=== PATIENT | female | born 1975 | race Caucasian/White ===

== ENCOUNTER → 2017-04-05 | Outpatient (CLI) | payer OTHER ==
[~2017-04-05] MED LIST: BCPILLS PO
== END | disposition home or self-care (01) ==
LOC: C.PAPS 09:57
PROVIDERS: ATTEND Obstetrics & Gynecology
DX: Z12.4 Encounter for screening for malignant neoplasm of cervix (principal)

== ENCOUNTER 2021-04-23 19:24 | Inpatient (IN) ==
[2021-04-23] MEDS ORDERED: OPTIRAY 320 125ml IV ONE (19:48)
[2021-04-23 19:49] LABS: Basophils # (auto) 0.04 K/uL (0-0.2); Basophils % (auto) 0.3 %; Eosinophils # (auto) 0.04 K/uL (0-0.5); Eosinophils % (auto) 0.3 %; Hematocrit (blood only) 43.7 % (37-47); Hemoglobin 14.6 g/dL (12.0-16.0); Immature Granulocytes # (auto) 0.02 K/uL (0.00-0.02); Immature Granulocytes % (auto) 0.2 %; Lymphocytes # (auto) 1.34 K/uL (1.2-3.4); Lymphocytes % (auto) 11.3 %; Mean Corpuscular Hemoglobin 30.4 pg (25-34); Mean Corpuscular Hgb Conc 33.4 g/dL (32-36); Mean Corpuscular Volume 90.9 fL (80-100); Mean Platelet Volume 8.7 fL (7.4-10.4); Monocytes # (auto) 0.74 K/uL (0.11-0.59); Monocytes % (auto) 6.3 %; Neutrophils # (auto) 9.66 K/uL (1.4-6.5); Neutrophils % (auto) 81.6 %; Nucleated RBC # (auto) 0.04 K/uL (0-0); Nucleated RBC % (auto) 0.3 %; Platelet Count 406 K/uL (130-400); RDW Coefficient of Variation 13.3 % (11.5-14.5); Red Blood Count 4.81 M/uL (4.2-5.4); White Blood Count 11.84 K/uL (4.8-10.8)
--- NOTE | 2021-04-23 19:53 | CT Scan Report ---
CT OF THE HEAD WITHOUT CONTRAST CLINICAL HISTORY: Stroke like symptoms. COMPARISON STUDY: Head CT April 26, 2015. TECHNIQUE: Helical axial images of the head were obtained without IV contrast. Automated exposure con trol was utilized for the study. A dose lowering technique was utilized adhering to the principles o f ALARA. FINDINGS: No acute intracranial hemorrhage, midline shift or mass effect is present. Note is made of encephalomalacia within portions of the left MCA territory. There is associated mild dilatation of th e left lateral ventricle. These findings are chronic. There are no findings to suggest acute dural si nus thrombosis or acute territorial infarct. No significant calvarial abnormalities are present. Visu alized portions of the sinuses and mastoid air cells are clear. IMPRESSION: 1. No acute intracranial findings. 2. 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 ACT 112: Negative or not required by law. Electronically signed by: Juan Antonio Nichols M.D. 04/23/2021 7:52 PM
[2021-04-23 19:54] LABS: iSTAT Creatinine 1.2 mg/dl (0.6-1.3); iSTAT Hemoglobin 14.6 g/dl (12.0-16.0); iSTAT Ionized Calcium 1.13 mmol/l (1.12-1.32); iSTAT Potassium 3.2 mmol/L (3.3-5.0)
--- NOTE | 2021-04-23 20:00 | CT Scan Report ---
HEAD & NECK CTA HISTORY: Slurred speech. Right facial droop. Right-sided weakness. Stroke Like Symptoms TECHNIQUE: Multiaxial CT images of the head were performed following the intravenous administration o f contrast to evaluate the major cerebral vessels. Multiaxial CT images of the neck were also perform ed following the intravenous administration of contrast to evaluate the major cervical vessels. Maxim um intensity projection images were also obtained. A dose lowering technique was utilized adhering to the principles of ALARA. COMPARISON: Head CT 04/26/2015. FINDINGS: The major dural venous sinuses are patent. Visualized intracranial internal carotid arteries, distal vertebral arteries, and basilar artery are widely patent. 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 Slightly attenuated left MCA branch es in comparison to the right. This is likely due to the chronic encephalomalacia seen within the lef t MCA territory consistent with an old infarct. The aortic arch and proximal great vessels are widely patent. There is no significant stenosis, occ lusion, or dissection identified within the bilateral common carotid, internal carotid, or vertebral arteries. Mild partially calcified plaque within the left carotid bulb. IMPRESSION: 1. Attenuated left MCA branches likely corresponding to the old left MCA territory infarct. The remai kellie cerebral arteries show no significant stenosis, occlusion, or aneurysm. 2. No significant stenosis, occlusion, or dissection identified within the carotid or vertebral arter ies. ACT 112: Negative or not required by law. Electronically signed by: Christopher La M.D. 04/23/2021 7:59 PM
--- NOTE | 2021-04-23 20:01 | XRay Report ---
XR chest 1V portable HISTORY: Slurred speech. Right-sided weakness. Stroke Like Symptoms COMPARISON: Chest 04/26/2015. FINDINGS: The lungs are clear. The heart remains top normal in size. No pleural effusions. No pneumot horax. IMPRESSION: No acute process. ACT 112: Negative or not required by law. Electronically signed by: Christopher La M.D. 04/23/2021 8:00 PM
[2021-04-23 20:03] LABS: INR 1.1 (0.9-1.1); Partial Thromboplastin Ratio 0.9; Partial Thromboplastin Time 23.9 Seconds (21.0-31.0); Prothrombin Time 10.8 Seconds (9.0-12.0)
--- NOTE | 2021-04-23 20:10 | Emergency Department Note ---
Impression & Plan Ischemic cerebrovascular accident (CVA) ED Provider Note NAME: HORACE TRIPP AGE: 45 SEX: F : 1975 ARRIVES VIA: Walk-In INFORMANT: Patient, patient significant other ED PROVIDER(S): Magnus Davis DO CHIEF COMPLAINT: Strokelike symptoms HPI: The patient is a 45-year-old female who presented to the emergency department through triage for an evaluation of strokelike symptoms. The patient has a history of a stroke in the past. She had a stroke in 2016 which felt to be secondary to a PFO. The patient presented to the emergency department at that time outside of the TPA window. The patient states that she went to lay down at approximately 4:30 p.m. this afternoon. She was tired but states that she did not have any headache or weakness. When she awoke she called for her significant other because she did not feel right. She states that she thought she may be having a stroke. Her significant other presented to the emergency department with her and states that approximately 7:05 PM his significant other found him and stated that she did not feel right. She was noted to have slurred speech. She tried to ambulate but appeared to be having weakness and was falling. Her significant other states that her symptoms are very similar to when she had a previous stroke. She only takes aspirin. She is not on any oral anticoagulation. The patient's last known well time according to her was this morning when she appeared to be at her normal baseline. The patient herself states that she felt fine before she went to take the nap. She had no recent trauma or fevers. She states otherwise she has been compliant with her usual outpatient medications. ROS: See above HPI for pertinent positives & negatives. A total of 10 systems reviewed and were otherwise negative. PAST MEDICAL HISTORY: See Below PAST SURGICAL HISTORY: See Below FAMILY HISTORY: See Below SOCIAL HISTORY: See Below HOME MEDICATIONS: See Below ALLERGIES: See Below VITALS: See Below PHYSICAL EXAMINATION: GENERAL: The patient is awake and alert. She appears somewhat anxious appearing. EYES: The conjunctivae are clear. The pupils are round and reactive. EARS, NOSE, MOUTH AND THROAT: The nose is without any evidence of any deformity. NECK: The neck is nontender and supple. RESPIRATORY: Normal respiratory effort is noted there is no evidence of wheezing rhonchi or rales CARDIOVASCULAR: Tachycardic rate with regular rhythm was noted. There is no definite murmur. GASTROINTESTINAL: The abdomen is soft. Abdomen is nontender. MUSCULOSKELETAL/EXTREMITIES: There is no evidence of gross deformity full range of motion is noted in the hips and shoulders. SKIN: There is no obvious evidence of any rash. There are no petechiae, pallor or cyanosis noted. NEUROLOGIC: Patient is awake alert and oriented x3. Check Weigher strength was symmetric. There was no drift noted in the upper extremities. Patient is able to hold each leg off the bed for greater than 5 seconds. There is a slight dysarthria noted with pressured speech. There is a facial droop noted on the right involving the corner of the mouth. MEDICAL DECISION MAKING: The patient is a 45-year-old female who has a history of ischemic stroke who presented to the emergency department for strokelike symptoms. The patient had a last known well observed by her significant other this morning however she states that she felt in her normal state of health when she went to lay down for a nap around 4:30 PM. When she awoke she felt as though something was off. She contacted her significant other in approximately 7 was noted to have slurred speech and difficulty ambulating. The patient was made a stroke alert after coming through triage. Her initial CT showed no acute disease. She was considered to be a candidate for thrombolytics although she was outside of the 3-hour window. I discussed her case with the telestroke neurologist. She agreed that the patient might be a candidate for thrombolytics and could benefit if they were delivered still inside of the for 1/2-hour window. We discussed the risk and benefits with the patient as well as her significant other. They were agreeable to thrombolytic administration. Thrombolytics were ordered by myself. I reevaluated the patient multiple times. I did also discussed her case with the on-call [facility] hospitalist. They have agreed to evaluate the patient in the emergency department for further management and disposition. Triage Nursing notes reviewed. Prior medical records reviewed Vital Signs: reviewed and remarkable for no significant abnormalities Differential diagnosis: Infection, dehydration, metabolic abnormality, hypo/hyperglycemia, electrolyte disturbance, anemia, hypoxia, cardiac sources, intracerebral event, toxicologic, neurologic, as well as other pathologies. ER treatment provided: See below Diagnostics interpreted by me: ECG: EKG was obtained in the emergency department. My interpretation is sinus tachycardia 111 bpm. There is no ectopy. Poor R wave progression was noted. Low voltage was noted throughout. This was compared to a tracing from March. No changes were noted. Cardiac Monitoring: An order was placed for continuous cardiac monitoring. The monitor shows a rate of 85 bpm with sinus rhythm. Laboratory studies: As stated above and show below. Imaging studies: See below Consultation(s): I discussed this case with Dr. Lagos who is on-call for [facility] telestroke. I discussed this case with Dr. Whitehead who is on-call for the [facility] hospitalist group. ED COURSE: Procedures: none Critical Care: I have personally spent greater than 45 minutes of critical care time in the direct management of this patient. This includes bedside care, interpretation of diagnostic studies, and testing, discussion with consultants, patient, and family members, and other required patient management activities. This 45 minutes is in excess of all separately billable procedures. 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 Required: No Beliefs That Will Affect Care: None Current Living Situation: Spouse Feels Safe at Home: Yes Safety Concerns: Feels Safe At This Time Assistive Devices: None Allergies Allergies Allergy/AdvReac Type Severity Reaction Status Date / Time ethinyl estradiol Allergy Unknown neuro Verified 04/23/21 19:48 [From Ortho Tri-Cyclen (28)] complications norgestimate Allergy Unknown neuro Verified 04/23/21 19:48 [From Ortho Tri-Cyclen (28)] complications Penicillins Allergy Unknown unkn Verified 04/23/21 19:48 bee venom protein (honey bee) AdvReac Unknown SWELLING Verified 12/21/20 09:04 Home Meds Home Medications Medication Instructions Recorded Confirmed cholecalciferol (vitamin D3) 50 2,000 units PO DAILY 10/17/18 04/23/21 mcg (2,000 unit) capsule losartan 25 mg tablet 25 mg PO DAILY 10/17/18 04/23/21 aspirin 81 mg tablet,delayed 81 mg PO DAILY 04/23/21 04/23/21 release (Aspirin Low Dose) atorvastatin 20 mg tablet 20 mg PO DAILY 04/23/21 04/23/21 bupropion HCl 300 mg 24 hr tablet, 300 mg PO DAILY 04/23/21 04/23/21 extended release fluoxetine 40 mg capsule 40 mg PO DAILY 04/23/21 04/23/21 gabapentin 400 mg capsule 400 mg PO TID 04/23/21 04/23/21 Results & Data (ED) Vital Signs Vital Signs - 24 hr 04/23/21 19:25 04/23/21 19:47 04/23/21 20:13 Temperature 36.8 C Temperature Source Temporal Artery Scan Pulse Rate 118 H Pulse Rate [Apical] 128 H 120 H Pulse Rhythm [Apical] Pulse Strength [Apical] Respiratory Rate 18 20 20 Respiratory Effort / Characteristics Non-Labored Spontaneous Non-Labored Spontaneous Respiratory Depth Normal Normal Respiratory Pattern Regular Regular Blood Pressure 130/81 Blood Pressure [Right Arm] 145/81 H 138/84 Blood Pressure Mean 97 Blood Pressure Mean [Right Arm] 102 102 Blood Pressure Position Sitting Blood Pressure Position [Right Arm] Semi-fowlers Pulse Oximetry 99 100 99 Oxygen Delivery Method Room Air Room Air Room Air Sepsis Recent Fever Within 48 Hours No Sepsis New/Unexplained Change in Mental Status No Sepsis Action Taken by Nursing No Action Required 04/23/21 20:36 04/23/21 20:51 04/23/21 21:06 Temperature 36.9 C 36.8 C Temperature Source Oral Oral Pulse Rate Pulse Rate [Apical] 111 H 105 H 101 H Pulse Rhythm [Apical] Regular Pulse Strength [Apical] Normal Respiratory Rate 20 22 20 Respiratory Effort / Characteristics Non-Labored Spontaneous Non-Labored Spontaneous Respiratory Depth Normal Normal Respiratory Pattern Regular Regular Blood Pressure Blood Pressure [Right Arm] 145/96 H 134/97 150/96 H Blood Pressure Mean Blood Pressure Mean [Right Arm] 112 109 114 Blood Pressure Position Blood Pressure Position [Right Arm] Semi-fowlers Semi-fowlers Pulse Oximetry 99 98 96 Oxygen Delivery Method Room Air Room Air Room Air Sepsis Recent Fever Within 48 Hours Sepsis New/Unexplained Change in Mental Status Sepsis Action Taken by Nursing 04/23/21 21:21 04/23/21 21:36 04/23/21 21:51 Temperature 36.7 C 36.8 C Temperature Source Oral Oral Pulse Rate Pulse Rate [Apical] 94 H 94 H 93 H Pulse Rhythm [Apical] Pulse Strength [Apical] Respiratory Rate 21 20 22 Respiratory Effort / Characteristics Non-Labored Spontaneous Non-Labored Spontaneous Non-Labored Spontaneous Respiratory Depth Normal Normal Normal Respiratory Pattern Regular Regular Regular Blood Pressure Blood Pressure [Right Arm] 135/89 138/92 128/87 Blood Pressure Mean Blood Pressure Mean [Right Arm] 104 107 100 Blood Pressure Position Blood Pressure Position [Right Arm] Semi-fowlers Semi-fowlers Semi-fowlers Pulse Oximetry 97 97 97 Oxygen Delivery Method Room Air Room Air Room Air Sepsis Recent Fever Within 48 Hours Sepsis New/Unexplained Change in Mental Status Sepsis Action Taken by Retirement Medications Current Medication List: was personally reviewed by me Laboratory Data Attestation: I reviewed the patient's lab results. Result diagrams: 04/24/21 05:11 04/24/21 05:11 Lab Results 04/23/21 04/23/21 04/23/21 Range/Units 19:34 19:37 19:37 WBC 11.84 H (4.8-10.8) K/uL RBC 4.81 (4.2-5.4) M/uL Hgb 14.6 (12.0-16.0) g/dL POC Hgb (12.0-16.0) g/dl Hct 43.7 (37-47) % POC Hct (37-47) % MCV 90.9 (80-100) fL MCH 30.4 (25-34) pg MCHC 33.4 (32-36) g/dL RDW Std Deviation 44.0 (36.4-46.3) fL RDW Coeff of Joslyn 13.3 (11.5-14.5) % Plt Count 406 H (130-400) K/uL MPV 8.7 (7.4-10.4) fL Immature Gran % (Auto) 0.2 % Neut % (Auto) 81.6 % Lymph % (Auto) 11.3 % [place] % (Auto) 6.3 % Eos % (Auto) 0.3 % Baso % (Auto) 0.3 % Neut # (Auto) 9.66 H (1.4-6.5) K/uL Lymph # (Auto) 1.34 (1.2-3.4) K/uL [place] # (Auto) 0.74 H (0.11-0.59) K/uL Eos # (Auto) 0.04 (0-0.5) K/uL Baso # (Auto) 0.04 (0-0.2) K/uL Immature Gran # (Auto) 0.02 (0.00-0.02) K/uL Absolute Nucleated RBC 0.04 H (0-0) K/uL Nucleated RBC % (auto) 0.3 % PT 10.8 (9.0-12.0) Seconds INR 1.1 (0.9-1.1) APTT 23.9 (21.0-31.0) Seconds PTT Ratio 0.9 POC Sodium (135-144) mmol/L Sodium (136-145) mmol/L POC Potassium (3.3-5.0) mmol/L Potassium (3.5-5.1) mmol/L POC Chloride (101-112) mmol/L Chloride (98-107) mmol/L Carbon Dioxide (21-32) mmol/L POC Total CO2 (24-31) mmol/L Anion Gap (3-11) POC Anion Gap (16-25) mmol/L POC BUN (7-18) mg/dl BUN (6-23) mg/dl Creatinine (0.6-1.2) mg/dl POC Creatinine (0.6-1.3) mg/dl Est Cr Clr Drug Dosing ml/min Est GFR ( Amer) ml/min Est GFR (Non-Af Amer) ml/min BUN/Creatinine Ratio (10-20) Glucose (70-99(Fasting)) mg/dl POC Glucose 122 H (70-99) mg/dl POC Glucose (other) (70-99) mg/dl Calcium (8.5-10.1) mg/dl POC Ioniz Calcium Uri (1.12-1.32) mmol/l Magnesium (1.7-2.4) mg/dl Total Bilirubin (0.2-1.0) mg/dl AST (13-39) U/L ALT (7-52) U/L Alkaline Phosphatase (34-104) U/L Troponin I (0-0.04) ng/ml Total Protein (6.0-8.3) gm/dl Albumin (3.4-5.0) gm/dl Globulin (2.5-4.0) gm/dl Albumin/Globulin Ratio (0.9-2) TSH (0.300-4.500) uIu/ml HCG, Quant mIU/ml SARS-CoV-2, RNA, NAAT (NEGATIVE) 04/23/21 04/23/21 04/23/21 Range/Units 19:37 19:37 19:37 WBC (4.8-10.8) K/uL RBC (4.2-5.4) M/uL Hgb (12.0-16.0) g/dL POC Hgb (12.0-16.0) g/dl Hct (37-47) % POC Hct (37-47) % MCV (80-100) fL MCH (25-34) pg MCHC (32-36) g/dL RDW Std Deviation (36.4-46.3) fL RDW Coeff of Joslyn (11.5-14.5) % Plt Count (130-400) K/uL MPV (7.4-10.4) fL Immature Gran % (Auto) % Neut % (Auto) % Lymph % (Auto) % [place] % (Auto) % Eos % (Auto) % Baso % (Auto) % Neut # (Auto) (1.4-6.5) K/uL Lymph # (Auto) (1.2-3.4) K/uL [place] # (Auto) (0.11-0.59) K/uL Eos # (Auto) (0-0.5) K/uL Baso # (Auto) (0-0.2) K/uL Immature Gran # (Auto) (0.00-0.02) K/uL Absolute Nucleated RBC (0-0) K/uL Nucleated RBC % (auto) % PT (9.0-12.0) Seconds INR (0.9-1.1) APTT (21.0-31.0) Seconds PTT Ratio POC Sodium (135-144) mmol/L Sodium 138 (136-145) mmol/L POC Potassium (3.3-5.0) mmol/L Potassium 3.2 L (3.5-5.1) mmol/L POC Chloride (101-112) mmol/L Chloride 102 (98-107) mmol/L Carbon Dioxide 22 (21-32) mmol/L POC Total CO2 (24-31) mmol/L Anion Gap 14 H (3-11) POC Anion Gap (16-25) mmol/L POC BUN (7-18) mg/dl BUN 9 (6-23) mg/dl Creatinine 1.27 H (0.6-1.2) mg/dl POC Creatinine (0.6-1.3) mg/dl Est Cr Clr Drug Dosing 55.7 ml/min Est GFR ( Amer) 59.0 ml/min Est GFR (Non-Af Amer) 50.9 ml/min BUN/Creatinine Ratio 7.1 L (10-20) Glucose 119 H (70-99(Fasting)) mg/dl POC Glucose (70-99) mg/dl POC Glucose (other) (70-99) mg/dl Calcium 8.8 (8.5-10.1) mg/dl POC Ioniz Calcium Uri (1.12-1.32) mmol/l Magnesium 2.0 (1.7-2.4) mg/dl Total Bilirubin 0.5 (0.2-1.0) mg/dl AST 30 (13-39) U/L ALT 18 (7-52) U/L Alkaline Phosphatase 134 H (34-104) U/L Troponin I < 0.03 (0-0.04) ng/ml Total Protein 7.5 (6.0-8.3) gm/dl Albumin 4.4 (3.4-5.0) gm/dl Globulin 3.1 (2.5-4.0) gm/dl Albumin/Globulin Ratio 1.4 (0.9-2) TSH 4.440 (0.300-4.500) uIu/ml HCG, Quant 2 mIU/ml SARS-CoV-2, RNA, NAAT (NEGATIVE) 04/23/21 04/23/21 Range/Units 19:42 20:35 WBC (4.8-10.8) K/uL RBC (4.2-5.4) M/uL Hgb (12.0-16.0) g/dL POC Hgb 14.6 (12.0-16.0) g/dl Hct (37-47) % POC Hct 43 (37-47) % MCV (80-100) fL MCH (25-34) pg MCHC (32-36) g/dL RDW Std Deviation (36.4-46.3) fL RDW Coeff of Joslyn (11.5-14.5) % Plt Count (130-400) K/uL MPV (7.4-10.4) fL Immature Gran % (Auto) % Neut % (Auto) % Lymph % (Auto) % [place] % (Auto) % Eos % (Auto) % Baso % (Auto) % Neut # (Auto) (1.4-6.5) K/uL Lymph # (Auto) (1.2-3.4) K/uL [place] # (Auto) (0.11-0.59) K/uL Eos # (Auto) (0-0.5) K/uL Baso # (Auto) (0-0.2) K/uL Immature Gran # (Auto) (0.00-0.02) K/uL Absolute Nucleated RBC (0-0) K/uL Nucleated RBC % (auto) % PT (9.0-12.0) Seconds INR (0.9-1.1) APTT (21.0-31.0) Seconds PTT Ratio POC Sodium 141 (135-144) mmol/L Sodium (136-145) mmol/L POC Potassium 3.2 L (3.3-5.0) mmol/L Potassium (3.5-5.1) mmol/L POC Chloride 102 (101-112) mmol/L Chloride (98-107) mmol/L Carbon Dioxide (21-32) mmol/L POC Total CO2 24 (24-31) mmol/L Anion Gap (3-11) POC Anion Gap 18.0 (16-25) mmol/L POC BUN 9 (7-18) mg/dl BUN (6-23) mg/dl Creatinine (0.6-1.2) mg/dl POC Creatinine 1.2 (0.6-1.3) mg/dl Est Cr Clr Drug Dosing ml/min Est GFR ( Amer) ml/min Est GFR (Non-Af Amer) ml/min BUN/Creatinine Ratio (10-20) Glucose (70-99(Fasting)) mg/dl POC Glucose (70-99) mg/dl POC Glucose (other) 125 H (70-99) mg/dl Calcium (8.5-10.1) mg/dl POC Ioniz Calcium Uri 1.13 (1.12-1.32) mmol/l Magnesium (1.7-2.4) mg/dl Total Bilirubin (0.2-1.0) mg/dl AST (13-39) U/L ALT (7-52) U/L Alkaline Phosphatase (34-104) U/L Troponin I (0-0.04) ng/ml Total Protein (6.0-8.3) gm/dl Albumin (3.4-5.0) gm/dl Globulin (2.5-4.0) gm/dl Albumin/Globulin Ratio (0.9-2) TSH (0.300-4.500) uIu/ml HCG, Quant mIU/ml SARS-CoV-2, RNA, NAAT NEGATIVE (NEGATIVE) Administered Medications Atorvastatin Calcium (Atorvastatin 20 Mg Tab) 20 mg PO DAILY [facility] Stop: 05/24/21 08:59 Last Admin: 04/24/21 08:30 Dose: 20 mg Documented by: [id number] Bupropion HCl (Bupropion Xl 300 Mg Tabcr) 300 mg PO DAILY [facility] Stop: 05/24/21 08:59 Last Admin: 04/24/21 08:30 Dose: 300 mg Documented by: [id number] Fluoxetine HCl (Fluoxetine Hcl 20 Mg Cap) 40 mg PO DAILY [facility] Stop: 05/24/21 08:59 Last Admin: 04/24/21 08:30 Dose: 40 mg Documented by: [id number] Gabapentin (Gabapentin 400 Mg Cap) 400 mg PO TID [facility] Stop: 05/24/21 08:59 Last Admin: 04/24/21 20:25 Dose: 400 mg Documented by: [id number] Admin: 04/24/21 14:38 Dose: 400 mg Documented by: [id number] Admin: 04/24/21 08:29 Dose: 400 mg Documented by: [id number] Cefepime HCl 2,000 mg/ Syringe 20 mls @ 5 mls/min IV Q8H [facility]; Protocol Stop: 05/04/21 19:59 Last Admin: 04/24/21 20:25 Dose: 5 mls/min Documented by: [id number] Discontinued Medications Tenecteplase 23 mg/ Syringe 4.6 mls @ 55.2 mls/min IV NOW ONE; Protocol Stop: 04/23/21 20:34 Last Admin: 04/23/21 20:36 Dose: 55.2 mls/min Documented by: [id number] Cosigned by: [id number] Sodium Chloride (Nss 1000ml) 500 mls @ 999 mls/hr IV .Q31M ONE Stop: 04/23/21 21:28 Last Infusion: 04/23/21 21:33 Dose: 0 mls/hr Documented by: [id number] Admin: 04/23/21 21:02 Dose: 999 mls/hr Documented by: [id number] Potassium Chloride (K Bunny / Wtr) 10 meq in 100 mls @ 100 mls/hr IV Q1H [facility]; Protocol Stop: 04/24/21 01:44 Last Infusion: 04/24/21 02:30 Dose: 0 mls/hr Documented by: [id number] Admin: 04/24/21 01:28 Dose: 100 mls/hr Documented by: [id number] Infusion: 04/24/21 01:20 Dose: 100 mls/hr Documented by: [id number] Admin: 04/24/21 00:20 Dose: 100 mls/hr Documented by: [id number] Infusion: 04/24/21 00:17 Dose: 100 mls/hr Documented by: [id number] Admin: 04/23/21 23:17 Dose: 100 mls/hr Documented by: [id number] Infusion: 04/23/21 22:51 Dose: 100 mls/hr Documented by: [id number] Admin: 04/23/21 21:51 Dose: 100 mls/hr Documented by: [id number] Lactated Ringer's (Lr) 1,000 mls @ 80 mls/hr IV .[id number] [facility] Stop: 05/23/21 23:08 Last Infusion: 04/24/21 20:46 Dose: 0 mls/hr Documented by: [id number] Admin: 04/24/21 12:18 Dose: 80 mls/hr Documented by: [id number] Infusion: 04/24/21 12:18 Dose: 80 mls/hr Documented by: [id number] Admin: 04/24/21 00:21 Dose: 80 mls/hr Documented by: [id number] Ioversol (Optiray 320 125ml) 120 ml IV ONCE ONE Stop: 04/23/21 19:49 Last Admin: 04/23/21 19:48 Dose: 120 ml Documented by: [id number] Miscellaneous (Stat Iv) 1 ea N/A NOW STA Stop: 04/23/21 20:23 Last Admin: 04/23/21 20:35 Dose: 1 ea Documented by: [id number] Potassium Chloride (Potassium Chloride Crtab 20 Meq Tabcr) 20 meq PO NOW STA Stop: 04/24/21 06:45 Last Admin: 04/24/21 08:29 Dose: 20 meq Documented by: [id number] Sodium Chloride (Sodium Chloride 0.9% 10ml Flush) 20 ml IV NOW STA Stop: 04/23/21 20:23 Last Admin: 04/23/21 20:38 Dose: 20 ml Documented by: [id number] Imaging Data Radiologist's Impression: Chest X-Ray 04/23/21 19:33 XR chest 1V portable HISTORY: Slurred speech. Right-sided weakness. Stroke Like Symptoms COMPARISON: Chest 04/26/2015. FINDINGS: The lungs are clear. The heart remains top normal in size. No pleural effusions. No pneumothorax. IMPRESSION: No acute process. ACT 112: Negative or not required by law. Electronically signed by: Christopher La M.D. 04/23/2021 8:[address] 04/23/21 19:33 CT OF THE HEAD WITHOUT CONTRAST CLINICAL HISTORY: Stroke like symptoms. COMPARISON STUDY: Head CT April 26, 2015. TECHNIQUE: Helical axial images of the head were obtained without IV contrast. Automated exposure control was utilized for the study. A dose lowering technique was utilized adhering to the principles of ALARA. FINDINGS: No acute intracranial hemorrhage, midline shift or mass effect is present. Note is made of encephalomalacia within portions of the left MCA territory. There is associated mild dilatation of the left lateral ventricle. These findings are chronic. There are no findings to suggest acute dural sinus thrombosis or acute territorial infarct. No significant calvarial abnormalities are present. Visualized portions of the sinuses and mastoid air cells are clear. IMPRESSION: 1. No acute intracranial findings. 2. 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 ACT 112: Negative or not required by law. Electronically signed by: Juan Antonio Nichols M.D. 04/23/2021 7:52 PM Head CTA 04/23/21 19:33 HEAD & NECK CTA HISTORY: Slurred speech. Right facial droop. Right-sided weakness. Stroke Like Symptoms TECHNIQUE: Multiaxial CT images of the head were performed following the intr avenous administration of contrast to evaluate the major cerebral vessels. Multiaxial CT images of the neck were also performed following the intravenous administration of contrast to evaluate the major cervical vessels. Maximum intensity projection images were also obtained. A dose lowering technique was utilized adhering to the principles of ALARA. COMPARISON: Head CT 04/26/2015. FINDINGS: The major dural venous sinuses are patent. Visualized intracranial internal carotid arteries, distal vertebral arteries, and basilar artery are widely patent. There is no significant stenosis, occlusion, or aneurysm seen within the bilateral ACAs, right MCA, or four h club agent. Slightly attenuated left MCA branches in comparison to the right. This is likely due to the chronic encephalomalacia seen within the left MCA territory consistent with an old infarct. The aortic arch and proximal great vessels are widely patent. There is no significant stenosis, occlusion, or dissection identified within the bilateral common carotid, internal carotid, or vertebral arteries. Mild partially calcified plaque within the left carotid bulb. IMPRESSION: 1. Attenuated left MCA branches likely corresponding to the old left MCA territory infarct. The remaining cerebral arteries show no significant stenosis, occlusion, or aneurysm. 2. No significant stenosis, occlusion, or dissection identified within the carotid or vertebral arteries. ACT 112: Negative or not required by law. Electronically signed by: Christopher La M.D. 04/23/2021 7:59 PM Neck CTA 04/23/21 19:33 HEAD & NECK CTA HISTORY: Slurred speech. Right facial droop. Right-sided weakness. Stroke Like Symptoms TECHNIQUE: Multiaxial CT images of the head were performed following the intravenous administration of contrast to evaluate the major cerebral vessels. Multiaxial CT images of the neck were also performed following the intravenous administration of contrast to evaluate the major cervical vessels. Maximum intensity projection images were also obtained. A dose lowering technique was utilized adhering to the principles of ALARA. COMPARISON: Head CT 04/26/2015. FINDINGS: The major dural venous sinuses are patent. Visualized intracranial internal carotid arteries, distal vertebral arteries, and basilar artery are widely patent. There is no significant stenosis, occlusion, or aneurysm seen within the bilateral ACAs, right MCA, or four h club agent. Slightly attenuated left MCA branches in comparison to the right. This is likely due to the chronic encephalomalacia seen within the left MCA territory consistent with an old infarct. The aortic arch and proximal great vessels are widely patent. There is no significant stenosis, occlusion, or dissection identified within the bilateral common carotid, internal carotid, or vertebral arteries. Mild partially calcified plaque within the left carotid bulb. IMPRESSION: 1. Attenuated left MCA branches likely corresponding to the old left MCA territory infarct. The remaining cerebral arteries show no significant stenosis, occlusion, or aneurysm. 2. No significant stenosis, occlusion, or dissection identified within the carotid or vertebral arteries. ACT 112: Negative or not required by law. Electronically signed by: Christopher La M.D. 04/23/2021 7:59 PM Discharge Plan Visit Data Chief Complaint: Stroke/CVA Symptoms Stated Complaint: SLURRED SPEECH AND UNSTEADY WALKING ED Provider: Magnus Davis Discharge Problem: Ischemic cerebrovascular accident (CVA) Patient Disposition: Admitted As Inpatient Discharge Instructions Interventions: ED Discharge Assessment Last Done: 04/23/21 22:10
[2021-04-23 20:18] LABS: Troponin I < 0.03 ng/ml (0-0.04)
[2021-04-23 20:19] LABS: Alanine Aminotransferase 18 U/L (7-52); Albumin Globulin Ratio 1.4 (0.9-2); Albumin Level 4.4 gm/dl (3.4-5.0); Alkaline Phosphatase 134 U/L (34-104); Anion Gap 14 (3-11); Aspartate Aminotransferase 30 U/L (13-39); BUN Creatinine Ratio 7.1 (10-20); Bilirubin,Total 0.5 mg/dl (0.2-1.0); Blood Urea Nitrogen 9 mg/dl (6-23); Calcium 8.8 mg/dl (8.5-10.1); Carbon Dioxide 22 mmol/L (21-32); Chloride 102 mmol/L (98-107); Creatinine Clr Calc Pharmacy 55.7 ml/min; Est GFR (Non-African American) 50.9 ml/min; Globulin 3.1 gm/dl (2.5-4.0); Glucose 119 mg/dl (70-99(Fasting)); Potassium 3.2 mmol/L (3.5-5.1); Sodium 138 mmol/L (136-145); Total Protein 7.5 gm/dl (6.0-8.3)
[2021-04-23] MEDS ORDERED: STAT IV STA (20:22)
[2021-04-23] MEDS ORDERED: SODIUM CHLORIDE 0.9% 10ML FLUSH IV STA (20:22)
[2021-04-23] MEDS ORDERED: No Aspirin within 24hrs of THROMBOLYTIC-Stroke PO SCH (20:30)
[2021-04-23] MEDS ORDERED: TENECTEPLASE 23 MG in SYRINGE 0 ML IV ONE (20:33)
[2021-04-23] MEDS ORDERED: SODIUM CHLORIDE 0.9% 1000ML 500 ML IV ONE (20:58)
--- NOTE | 2021-04-23 21:46 | History & Physical Report ---
Date of Service April 23, 2021 Assessment & Plan (1) Recurrent cerebrovascular accidents (CVAs): Plan: hx left frontoparietal ischemic CVA 2016 History PFO as per records hypertension, slight elevated secondary to above hyperlipidemia, on statin Rx anxiety/mood disorder, suboptimal as per patient Hyperglycemia rule out DM Hypokalemia past tobacco abuse. ICU monitoring post TPA Neurochecks MRI brain, TTE for additional stroke work-up Neurology consult Re: Recurrent CVA Permissive hypertension for now Replace potassium Check hemoglobin A1c DVT prophylaxis. Lovenox subcutaneous 24 hours post TPA if no bleed on follow- up CT head Full code Patient requesting updates from providers. Mr. Magan Zambrano, contact #[phone]. Text document was generated using [employer] voice recognition software. It may contain grammatical or spelling errors. Kindly contact undersigned for clarification of any documentation item in question. History of Present Illness Chief Complaint: Slurred speech Primary Care Provider: Dr. Irving History obtained from patient, family, and records. Medical history significant for ischemic CVA, hypertension, hyperlipidemia, anxiety/mood disorder, past tobacco abuse. Patient confined at [facility] last March 2015 for left frontoparietal ischemic CVA presenting as slurred speech with right-sided weakness/numbness thought to be cardioembolic due to small PFO. No TPA during confinement. Patient discharged was on dual antiplatelet Rx (ASA, Plavix). Plavix discontinued after 1 year. Patient was also on citicoline as of last outpatient [facility] neurologist visit last April 2016. Patient took a nap around 4 PM today. When she woke up around 6 PM, patient noted to have slurred speech as per . No headache, no chest pain, no S OB, no arm or leg weakness. Patient compliant with home medications. Depression not the best as per patient although she denies suicidality. Stroke alert called upon arrival at the ER. IV tPA administered as per [facility] stroke specialist recommendations. Some improvement in slurred speech noted by post TPA administration. 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 Allergies Allergy/AdvReac Type Severity Reaction Status Date / Time ethinyl estradiol Allergy Unknown neuro Verified 04/23/21 19:48 [From Ortho Tri-Cyclen (28)] complications norgestimate Allergy Unknown neuro Verified 04/23/21 19:48 [From Ortho Tri-Cyclen (28)] complications Penicillins Allergy Unknown unkn Verified 04/23/21 19:48 bee venom protein (honey bee) AdvReac Unknown SWELLING Verified 12/21/20 09:04 Home Medications Medication Instructions Recorded Confirmed Type cholecalciferol (vitamin D3) 50 2,000 units PO DAILY 10/17/18 04/23/21 History mcg (2,000 unit) capsule losartan 25 mg tablet 25 mg PO DAILY 10/17/18 04/23/21 History aspirin 81 mg tablet,delayed 81 mg PO DAILY 04/23/21 04/23/21 History release (Aspirin Low Dose) atorvastatin 20 mg tablet 20 mg PO DAILY 04/23/21 04/23/21 History bupropion HCl 300 mg 24 hr tablet, 300 mg PO DAILY 04/23/21 04/23/21 History extended release fluoxetine 40 mg capsule 40 mg PO DAILY 04/23/21 04/23/21 History gabapentin 400 mg capsule 400 mg PO TID 04/23/21 04/23/21 History Past Med/Surg History Medical History Ischemic cerebrovascular accident (CVA) Vaginal Pap smear with ASC-US Varicella Surgical History H/O hernia repair Status post pyloromyotomy, follow-up exam Family History Aunt Breast cancer Father Diabetes Hypertension Mother Heart disease Grandmother (Maternal) Osteoporosis Social History Smoking Status: Never smoker Tobacco Type: Cigarettes Hx Alcohol Use: No Hx Substance Use: No Preferred Language: Setswana Communication Ability: Effective Jailer/Training Officer Required: No Beliefs That Will Affect Care: None Current Living Situation: Spouse Feels Safe at Home: Yes Safety Concerns: Feels Safe At This Time Assistive Devices: None Review of Systems Review of Systems: As per HPI, all 10 systems reviewed, all other ROS negative Physical Exam Physical Exam: GENERAL: Comfortable, slightly anxious, morbidly obese, mildly dysarthric, no respiratory distress SKIN: Normal color, warm HEENT: [place] palpebral conjunctivae, no ptosis, dry buccal mucosa NECK : Supple, short neck, no tenderness CHEST : CTA, no tenderness HEART : RRR, no obvious murmurs ABDOMEN: Some distention, nontender EXTREMITIES : Minimal LE swelling, no LE tenderness, no other conspicuous deformities noted NEUROLOGIC : Coherent, no facial asymmetry, mild dysarthria, gait and stance not assessed Results & Data Results & Data ([facility]) Vital Signs (Past 12 Hours) Vital Signs Temp Pulse Pulse Resp BP BP Pulse Ox 04/23/21 21:36 36.8 C 94 H 20 138/92 97 04/23/21 21:21 36.7 C 94 H 21 135/89 97 04/23/21 21:06 36.8 C 101 H 20 150/96 H 96 04/23/21 20:51 36.9 C 105 H 22 134/97 98 04/23/21 20:36 111 H 20 145/96 H 99 04/23/21 20:13 120 H 20 138/84 99 04/23/21 19:47 128 H 20 145/81 H 100 04/23/21 19:25 36.8 C 118 H 18 130/81 99 Laboratory Results Laboratory Results WBC 11.84 K/uL (4.8-10.8) H 04/23/21 19:37 RBC 4.81 M/uL (4.2-5.4) 04/23/21 19:37 Hgb 14.6 g/dL (12.0-16.0) 04/23/21 19:37 POC Hgb 14.6 g/dl (12.0-16.0) 04/23/21 19:42 Hct 43.7 % (37-47) 04/23/21 19:37 POC Hct 43 % (37-47) 04/23/21 19:42 MCV 90.9 fL (80-100) 04/23/21 19:37 MCH 30.4 pg (25-34) 04/23/21 19:37 MCHC 33.4 g/dL (32-36) 04/23/21 19:37 RDW Std Deviation 44.0 fL (36.4-46.3) 04/23/21 19:37 RDW Coeff of Joslyn 13.3 % (11.5-14.5) 04/23/21 19:37 Plt Count 406 K/uL (130-400) H 04/23/21 19:37 MPV 8.7 fL (7.4-10.4) 04/23/21 19:37 Immature Gran % (Auto) 0.2 % 04/23/21 19:37 Neut % (Auto) 81.6 % 04/23/21 19:37 Lymph % (Auto) 11.3 % 04/23/21 19:37 Pine % (Auto) 6.3 % 04/23/21 19:37 Eos % (Auto) 0.3 % 04/23/21 19:37 Baso % (Auto) 0.3 % 04/23/21 19:37 Neut # (Auto) 9.66 K/uL (1.4-6.5) H 04/23/21 19:37 Lymph # (Auto) 1.34 K/uL (1.2-3.4) 04/23/21 19:37 Pine # (Auto) 0.74 K/uL (0.11-0.59) H 04/23/21 19:37 Eos # (Auto) 0.04 K/uL (0-0.5) 04/23/21 19:37 Baso # (Auto) 0.04 K/uL (0-0.2) 04/23/21 19:37 Immature Gran # (Auto) 0.02 K/uL (0.00-0.02) 04/23/21 19:37 Absolute Nucleated RBC 0.04 K/uL (0-0) H 04/23/21 19:37 Nucleated RBC % (auto) 0.3 % 04/23/21 19:37 PT 10.8 Seconds (9.0-12.0) 04/23/21 19:37 INR 1.1 (0.9-1.1) 04/23/21 19:37 APTT 23.9 Seconds (21.0-31.0) 04/23/21 19:37 PTT Ratio 0.9 04/23/21 19:37 POC Sodium 141 mmol/L (135-144) 04/23/21 19:42 Sodium 138 mmol/L (136-145) 04/23/21 19:37 POC Potassium 3.2 mmol/L (3.3-5.0) L 04/23/21 19:42 Potassium 3.2 mmol/L (3.5-5.1) L 04/23/21 19:37 POC Chloride 102 mmol/L (101-112) 04/23/21 19:42 Chloride 102 mmol/L (98-107) 04/23/21 19:37 Carbon Dioxide 22 mmol/L (21-32) 04/23/21 19:37 POC Total CO2 24 mmol/L (24-31) 04/23/21 19:42 Anion Gap 14 (3-11) H 04/23/21 19:37 POC Anion Gap 18.0 mmol/L (16-25) 04/23/21 19:42 POC BUN 9 mg/dl (7-18) 04/23/21 19:42 BUN 9 mg/dl (6-23) 04/23/21 19:37 Creatinine 1.27 mg/dl (0.6-1.2) H 04/23/21 19:37 POC Creatinine 1.2 mg/dl (0.6-1.3) 04/23/21 19:42 Est Cr Clr Drug Dosing 55.7 ml/min 04/23/21 19:37 Est GFR ( Amer) 59.0 ml/min 04/23/21 19:37 Est GFR (Non-Af Amer) 50.9 ml/min 04/23/21 19:37 BUN/Creatinine Ratio 7.1 (10-20) L 04/23/21 19:37 Glucose 119 mg/dl (70-99(Fasting)) H 04/23/21 19:37 POC Glucose 122 mg/dl (70-99) H 04/23/21 19:34 POC Glucose (other) 125 mg/dl (70-99) H 04/23/21 19:42 Calcium 8.8 mg/dl (8.5-10.1) 04/23/21 19:37 POC Ioniz Calcium Uri 1.13 mmol/l (1.12-1.32) 04/23/21 19:42 Magnesium 2.0 mg/dl (1.7-2.4) 04/23/21 19:37 Total Bilirubin 0.5 mg/dl (0.2-1.0) 04/23/21 19:37 AST 30 U/L (13-39) 04/23/21 19:37 ALT 18 U/L (7-52) 04/23/21 19:37 Alkaline Phosphatase 134 U/L (34-104) H 04/23/21 19:37 Troponin I < 0.03 ng/ml (0-0.04) 04/23/21 19:37 Total Protein 7.5 gm/dl (6.0-8.3) 04/23/21 19:37 Albumin 4.4 gm/dl (3.4-5.0) 04/23/21 19:37 Globulin 3.1 gm/dl (2.5-4.0) 04/23/21 19:37 Albumin/Globulin Ratio 1.4 (0.9-2) 04/23/21 19:37 HCG, Quant 2 mIU/ml 04/23/21 19:37 SARS-CoV-2, RNA, NAAT NEGATIVE (NEGATIVE) 04/23/21 20:35 Impressions Chest X-Ray 04/23/21 19:33 XR chest 1V portable HISTORY: Slurred speech. Right-sided weakness. Stroke Like Symptoms COMPARISON: Chest 04/26/2015. FINDINGS: The lungs are clear. The heart remains top normal in size. No pleural effusions. No pneumothorax. IMPRESSION: No acute process. ACT 112: Negative or not required by law. Electronically signed by: Christopher La M.D. 04/23/2021 8:[address] 04/23/21 19:33 CT OF THE HEAD WITHOUT CONTRAST CLINICAL HISTORY: Stroke like symptoms. COMPARISON STUDY: Head CT April 26, 2015. TECHNIQUE: Helical axial images of the head were obtained without IV contrast. Automated exposure control was utilized for the study. A dose lowering technique was utilized adhering to the principles of ALARA. FINDINGS: No acute intracranial hemorrhage, midline shift or mass effect is present. Note is made of encephalomalacia within portions of the left MCA territory. There is associated mild dilatation of the left lateral ventricle. These findings are chronic. There are no findings to suggest acute dural sinus thrombosis or acute territorial infarct. No significant calvarial abnormalities are present. Visualized portions of the sinuses and mastoid air cells are clear. IMPRESSION: 1. No acute intracranial findings. 2. 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 ACT 112: Negative or not required by law. Electronically signed by: Juan Antonio Nichols M.D. 04/23/2021 7:52 PM Head CTA 04/23/21 19:33 HEAD & NECK CTA HISTORY: Slurred speech. Right facial droop. Right-sided weakness. Stroke Like Symptoms TECHNIQUE: Multiaxial CT images of the head were performed following the intravenous administration of contrast to evaluate the major cerebral vessels. Multiaxial CT images of the neck were also performed following the intravenous a dministration of contrast to evaluate the major cervical vessels. Maximum intensity projection images were also obtained. A dose lowering technique was utilized adhering to the principles of ALARA. COMPARISON: Head CT 04/26/2015. FINDINGS: The major dural venous sinuses are patent. Visualized intracranial internal carotid arteries, distal vertebral arteries, and basilar artery are widely p atent. There is no significant stenosis, occlusion, or aneurysm seen within the bilateral ACAs, right MCA, or stocking inspector. Slightly attenuated left MCA branches in comparison to the right. This is likely due to the chronic encephalomalacia seen within the left MCA territory consistent with an old infarct. The aortic arch and proximal great vessels are widely patent. There is no significant stenosis, occlusion, or dissection identified within the bilateral common carotid, internal carotid, or vertebral arteries. Mild partially calcified plaque within the left carotid bulb. IMPRESSION: 1. Attenuated left MCA branches likely corresponding to the old left MCA territory infarct. The remaining cerebral arteries show no significant stenosis, occlusion, or aneurysm. 2. No significant stenosis, occlusion, or dissection identified within the carotid or vertebral arteries. ACT 112: Negative or not required by law. Electronically signed by: Christopher La M.D. 04/23/2021 7:59 PM Neck CTA 04/23/21 19:33 HEAD & NECK CTA HISTORY: Slurred speech. Right facial droop. Right-sided weakness. Stroke Like Symptoms TECHNIQUE: Multiaxial CT images of the head were performed following the intravenous administration of contrast to evaluate the major cerebral vessels. Multiaxial CT images of the neck were also performed following the intravenous administration of contrast to evaluate the major cervical vessels. Maximum intensity projection images were also obtained. A dose lowering technique was utilized adhering to the principles of ALARA. COMPARISON: Head CT 04/26/2015. FINDINGS: The major dural venous sinuses are patent. Visualized intracranial internal carotid arteries, distal vertebral arteries, and basilar artery are widely patent. There is no significant stenosis, occlusion, or aneurysm seen within the bilateral ACAs, right MCA, or stocking inspector. Slightly attenuated left MCA branches in comparison to the right. This is likely due to the chronic encephalomalacia seen within the left MCA territory consistent with an old infarct. The aortic arch and proximal great vessels are widely patent. There is no significant stenosis, occlusion, or dissection identified within the bilateral common carotid, internal carotid, or vertebral arteries. Mild partially calcified plaque within the left carotid bulb. IMPRESSION: 1. Attenuated left MCA branches likely corresponding to the old left MCA territory infarct. The remaining cerebral arteries show no significant stenosis, occlusion, or aneurysm. 2. No significant stenosis, occlusion, or dissection identified within the carotid or vertebral arteries. ACT 112: Negative or not required by law. Electronically signed by: Christopher La M.D. 04/23/2021 7:59 PM Diagnostic Findings EKG as per my interpretation:Rate 110, sinus tachycardia, normal axis, diffuse T wave abnormalities, low voltage
[2021-04-23] MEDS: POTASSIUM CHLORIDE / WTR 10 MEQ/100 ML PLCT IV SCH ×2 (21:51→23:17)
[2021-04-23] MEDS ORDERED: PHARMACIST DISCHARGE MED REC CONSULT PRN (23:09)
[2021-04-23] MEDS ORDERED: PROMETHAZINE HCL 12.5 MG in SODIUM CHLORIDE 0.9% 50 ML IV PRN (23:09)
[2021-04-23] MEDS ORDERED: ICU PROTOCOL FOR HYPERGLYCEMIA PRN (23:09)
[2021-04-23] MEDS ORDERED: ACETAMINOPHEN 325 MG TAB PO PRN (23:09)
--- NOTE | 2021-04-23 23:37 | Critical Care Consultation ---
Date of Consultation April 23, 2021 Assessment & Plan (1) Acute CVA (cerebrovascular accident): Impression: 45-year-old female presents to the ICU following TPA administration for presumed cerebrovascular accident for 24-hour post TPA monitoring protocol. Neuro - CVApatient with initial symptoms of weakness/dizziness, and slurred speech as described in HPI. Received TPA at 2022 per [facility] neurology recommendations. Patient now without neurological deficits. -Patient does have history of left MCA territory infarct from 2016 which was visualized on CT imaging. No residual deficits from the stroke. -CT head, CTA head and neck without acute intracranial processes -MRI pending -Echo pending -Neurology consulted, follow-up for aspirin Plavix recommendations -Follow-up A1c and lipid panel -24-hour post TPA protocol in ICU, follow-up 24-hour CT head Anxiety disordercontinue Wellbutrin, Prozac Cardiac - No significant cardiac history. Patient normal sinus rhythm and hemodynamically stable on monitor. History of previous PFO Continuous monitor on telemetry Respiratory - No history of pulmonary disease. Currently maintaining oxygen saturation on room air without labored breathing. Continuous monitoring pulse ox GI - N.p.o. pending swallow. RENAL/LYTES - VIOLET?Creatinine 1.27, unsure of baseline -Continue with IV fluid resuscitation -Maintain maps greater than 65 and renally adjust medication -Monitored for development of contrast nephropathy following CTA -Monitor routine BMPs and replete electrolytes as indicated - Strict I's and O's ENDO - No history of diabetes or thyroid disease ICU hyperglycemic protocol HEME - H&H stable, monitor for bleeding and routine CBCs ID - Medication for infectious process at this time LINES/IV ACCESS - Peripheral IVs DVT PROPHYLAXIS - SCDs, hold on anticoagulation for 24 hours given TPA Thank you for allowing us to participate in the care of this patient. Please refer to my attending physician's documentation for any further recommendations. (2) Anxiety disorder: (3) H/O inguinal hernia repair: (4) Weakness: (5) Slurred speech: History of Present Illness Attending Physician: Amol Saunders MD History of Present Illness Patient is a 45-year-old female with past medical history left MCA infarct in 2016 (no residual) thought to be caused by PFO, and anxiety disorder who presented to the emergency department after experiencing dizziness and slurred speech which started around 7:05 PM. On arrival to the emergency department, CT head was negative for acute intracranial process along with CTA neck and head. Patient was evaluated by [place] neurology and she was determined to be candidate for TPA. Patient received TPA at 2022. Patient now transferred to ICU for 24-hour monitoring post TPA administration. On arrival to the ICU the patient is alert and oriented x3. She is hemodynamically stable and appears comfortable. She denies any pain, headache, dizziness, syncope, recent illness, fevers, congestion, cough, shortness of breath, chest pain or palpitations, abdominal pain, nausea vomiting or diarrhea. Patient states that her initial symptoms have resolved. She denies any changes in vision, weakness, numbness, or tingling or other neurological symptoms. Allergies Allergy/AdvReac Type Severity Reaction Status Date / Time ethinyl estradiol Allergy Unknown neuro Verified 04/23/21 19:48 [From Ortho Tri-Cyclen (28)] complications norgestimate Allergy Unknown neuro Verified 04/23/21 19:48 [From Ortho Tri-Cyclen (28)] complications Penicillins Allergy Unknown unkn Verified 04/23/21 19:48 bee venom protein (honey bee) AdvReac Unknown SWELLING Verified 12/21/20 09:04 Home Medications Medication Instructions Recorded Confirmed Type cholecalciferol (vitamin D3) 50 2,000 units PO DAILY 10/17/18 04/23/21 History mcg (2,000 unit) capsule losartan 25 mg tablet 25 mg PO DAILY 10/17/18 04/23/21 History aspirin 81 mg tablet,delayed 81 mg PO DAILY 04/23/21 04/23/21 History release (Aspirin Low Dose) atorvastatin 20 mg tablet 20 mg PO DAILY 04/23/21 04/23/21 History bupropion HCl 300 mg 24 hr tablet, 300 mg PO DAILY 04/23/21 04/23/21 History extended release fluoxetine 40 mg capsule 40 mg PO DAILY 04/23/21 04/23/21 History gabapentin 400 mg capsule 400 mg PO TID 04/23/21 04/23/21 History Patient History Medical History Ischemic cerebrovascular accident (CVA) Vaginal Pap smear with ASC-US Varicella Surgical History H/O hernia repair Status post pyloromyotomy, follow-up exam Family History Aunt Breast cancer Father Diabetes Hypertension Mother Heart disease Grandmother (Maternal) Osteoporosis Social History Smoking Status: Never smoker Tobacco Type: Cigarettes Hx Alcohol Use: No Hx Substance Use: No Preferred Language: Anguillan Communication Ability: Effective Global Category Manager Required: No Beliefs That Will Affect Care: None Current Living Situation: Spouse Feels Safe at Home: Yes Safety Concerns: Feels Safe At This Time Assistive Devices: None Review of Systems Review of Systems: All systems reviewed & are unremarkable except as noted in HPI & below Physical Exam Constitutional: cooperative and comfortable Eyes: PERRL, conjunctivae normal, anicteric sclerae ENMT: external ear and nose normal, oropharynx normal Neck: trachea midline, no thyromegaly Respiratory: normal respiratory effort, lungs clear to auscultation Cardiovascular: RRR, no murmur, no edema Heart Sounds: normal S1 and normal S2 Extremities: no edema Gastrointestinal (Abdomen): normal bowel sounds, soft, nontender, no hepatosplenomegaly Musculoskeletal: no cyanosis or clubbing, extremities motor strength 5/5 Skin: no rashes, warm and dry Neurologic: PERRL, EOMI, accommodation nl, no face palsy, no dysarthria Psychiatric: A+Ox3, euthymic affect Results & Data Results & Data ([facility]) Vital Signs (Past 12 Hours) Vital Signs Temp Pulse Pulse Resp BP BP BP 04/23/21 23:08 37.5 C 88 22 148/84 H 04/23/21 23:07 37.5 C 88 22 130/81 04/23/21 22:38 36.8 C 89 22 134/92 04/23/21 22:23 36.8 C 87 21 134/94 04/23/21 22:06 90 20 134/83 04/23/21 21:51 93 H 22 128/87 04/23/21 21:36 36.8 C 94 H 20 138/92 04/23/21 21:21 36.7 C 94 H 21 135/89 04/23/21 21:06 36.8 C 101 H 20 150/96 H 04/23/21 20:51 36.9 C 105 H 22 134/97 04/23/21 20:36 111 H 20 145/96 H 04/23/21 20:13 120 H 20 138/84 04/23/21 19:47 128 H 20 145/81 H 04/23/21 19:25 36.8 C 118 H 18 130/81 Pulse Ox 04/23/21 23:08 97 04/23/21 23:07 97 04/23/21 22:38 99 04/23/21 22:23 97 04/23/21 22:06 98 04/23/21 21:51 97 04/23/21 21:36 97 04/23/21 21:21 97 04/23/21 21:06 96 04/23/21 20:51 98 04/23/21 20:36 99 04/23/21 20:13 99 04/23/21 19:47 100 04/23/21 19:25 99 Coding Level of Care Code 40543 Inpt Consult Level 3 Diagnoses Acute CVA (cerebrovascular accident) I63.9 Anxiety disorder F41.9 H/O inguinal hernia repair Z98.890; Z87.19 Weakness R53.1 Slurred speech R47.81
[2021-04-24] MEDS: POTASSIUM CHLORIDE / WTR 10 MEQ/100 ML PLCT IV SCH ×2 (00:20→01:28)
[2021-04-24] MEDS: LACTATED RINGER'S 1,000 ML IV SCH ×2 (00:21→12:18)
[2021-04-24 02:11] LABS: Appearance Urine Clear (Clear); Bacteria Urine Automated 2+ (Negative); Bilirubin Urine Negative (Negative); Blood Urine 3+ (Negative); Color Urine Yellow; Epithelial Cell Urine Auto 20-30 /lpf (0-5); Glucose Urine UA Negative (Negative); Ketones Urine Negative (Negative); Leukocyte Esterase Urine Negative (Negative); Nitrite Urine Positive (Negative); Protein Urine 1+ (Negative); RBC Urine Automated >30 /hpf (0-4); Urobilinogen Urine Negative (Negative)
[2021-04-24 02:12] LABS: Specific Gravity Urine >= 1.045 (1.000-1.030)
[2021-04-24 05:27] LABS: Basophils # (auto) 0.05 K/uL (0-0.2); Basophils % (auto) 0.8 %; Eosinophils # (auto) 0.08 K/uL (0-0.5); Eosinophils % (auto) 1.3 %; Hematocrit (blood only) 37.4 % (37-47); Hemoglobin 12.2 g/dL (12.0-16.0); Immature Granulocytes # (auto) 0.01 K/uL (0.00-0.02); Immature Granulocytes % (auto) 0.2 %; Lymphocytes # (auto) 1.85 K/uL (1.2-3.4); Lymphocytes % (auto) 29.9 %; Mean Corpuscular Hemoglobin 29.7 pg (25-34); Mean Corpuscular Hgb Conc 32.6 g/dL (32-36); Mean Platelet Volume 8.5 fL (7.4-10.4); Monocytes # (auto) 0.54 K/uL (0.11-0.59); Monocytes % (auto) 8.7 %; Neutrophils # (auto) 3.66 K/uL (1.4-6.5); Neutrophils % (auto) 59.1 %; Platelet Count 327 K/uL (130-400); RDW Coefficient of Variation 13.4 % (11.5-14.5); RDW Standard Deviation 44.4 fL (36.4-46.3); Red Blood Count 4.11 M/uL (4.2-5.4); White Blood Count 6.19 K/uL (4.8-10.8)
[2021-04-24 06:25] LABS: BUN Creatinine Ratio 7.2 (10-20); Calcium 8.2 mg/dl (8.5-10.1); Creatinine Clr Calc Pharmacy 63.7 ml/min; Est GFR (African American) 69.5 ml/min; Est GFR (Non-African American) 59.9 ml/min; Phosphorus 2.8 mg/dl (2.5-4.9); Potassium 3.5 mmol/L (3.5-5.1)
[2021-04-24] MEDS ORDERED: POTASSIUM CHLORIDE CRTAB 20 MEQ TABCR PO STA (06:44)
[2021-04-24] MEDS: GABAPENTIN 400 MG CAP PO SCH ×3 (08:29→20:25)
[2021-04-24] MEDS: buPROPion XL 300 MG TABCR PO SCH (08:30)
[2021-04-24] MEDS: FLUoxetine HCL 20 MG CAP PO SCH (08:30)
[2021-04-24] MEDS: ATORVASTATIN 20 MG TAB PO SCH (08:30)
--- NOTE | 2021-04-24 08:57 | Critical Care Progress Note ---
Date of Service April 24, 2021 Assessment & Plan (1) Acute CVA (cerebrovascular accident): Plan: Impression: 45-year-old female presents to the ICU following TPA administration for presumed cerebrovascular accident for 24-hour post TPA monitoring protocol. Neuro - CVApatient with initial symptoms of weakness/dizziness, and slurred speech as described in HPI. Received TPA at 2022 per [facility] [place] recommendations. Patient now without neurological deficits. -Patient does have history of left MCA territory infarct from 2016 which was visualized on CT imaging. No residual deficits from the stroke. -CT head, CTA head and neck without acute intracranial processes -MRI pending -Echo pending -Neurology consulted, follow-up for aspirin Plavix recommendations -Follow-up A1c and lipid panel -24-hour post TPA protocol in ICU, follow-up 24-hour CT head Anxiety disordercontinue Wellbutrin, Prozac Cardiac - No significant cardiac history. Patient normal sinus rhythm and hemodynamically stable on monitor. History of previous PFO Continuous monitor on telemetry Respiratory - No history of pulmonary disease. Currently maintaining oxygen saturation on room air without labored breathing. Continuous monitoring pulse ox RENAL/LYTES - VIOLET?Creatinine 1.27, unsure of baseline -Improved creatinine 1.1 - Strict I's and O's ENDO - No history of diabetes or thyroid disease ICU hyperglycemic protocol HEME - H&H stable, monitor for bleeding and routine CBCs ID - Medication for infectious process at this time LINES/IV ACCESS - Peripheral IVs DVT PROPHYLAXIS - SCDs, hold on anticoagulation for 24 hours given TPA Anticipate able to downgrade status post 24 hours administration from TPA (2) Anxiety disorder: (3) H/O inguinal hernia repair: (4) Weakness: (5) Slurred speech: Admission and Anticipated Discharge Date Admission Date: April 23, 2021 Subjective No longer feels dizzy, speech back to normal feels acute issues have resolved Review of Systems Review of Systems: No chest pain or shortness of breath Physical Exam Physical Exam: General: Alert. nontoxic. Skin: Warm, dry, Head: Atraumatic Ears, nose, mouth and throat: airway patent Cardiovascular: Normal peripheral perfusion Respiratory: no respiratory distress Gastrointestinal: Non distended Musculoskeletal: No deformity Results & Data Results & Data ([facility]) Vital Signs (Past 12 Hours) Vital Signs Temp Pulse Pulse Resp BP BP BP 04/24/21 08:38 36.7 C 83 20 125/80 04/24/21 08:12 76 04/24/21 08:00 81 16 04/24/21 07:38 36.8 C 77 20 137/76 04/24/21 07:30 77 19 137/76 04/24/21 07:00 76 20 129/85 04/24/21 06:38 36.9 C 78 21 111/90 04/24/21 05:38 36.8 C 79 18 127/79 04/24/21 04:38 36.9 C 77 20 129/80 04/24/21 04:08 36.8 C 77 17 120/80 04/24/21 03:38 36.9 C 78 19 127/78 04/24/21 03:08 36.9 C 79 19 125/78 04/24/21 02:38 36.8 C 82 20 122/81 04/24/21 02:08 37.1 C 85 18 116/81 04/24/21 01:38 37.2 C 85 21 133/89 04/24/21 01:08 37.5 C 82 23 131/86 04/24/21 00:38 36.8 C 86 24 124/82 04/24/21 00:08 37.5 C 85 23 140/89 04/23/21 23:38 37.4 C 89 20 125/86 04/23/21 23:09 88 04/23/21 23:08 37.5 C 88 22 148/84 H 04/23/21 23:07 37.5 C 88 22 130/81 04/23/21 22:38 36.8 C 89 22 134/92 04/23/21 22:23 36.8 C 87 21 134/94 04/23/21 22:06 90 20 134/83 04/23/21 21:51 93 H 22 128/87 04/23/21 21:36 36.8 C 94 H 20 138/92 04/23/21 21:21 36.7 C 94 H 21 135/89 04/23/21 21:06 36.8 C 101 H 20 150/96 H Pulse Ox 04/24/21 08:38 93 04/24/21 08:12 04/24/21 08:00 96 04/24/21 07:38 97 04/24/21 07:30 96 04/24/21 07:00 95 02/27/22 06:38 93 04/24/21 05:38 93 04/24/21 04:38 93 04/24/21 04:08 94 04/24/21 03:38 93 04/24/21 03:08 93 04/24/21 02:38 93 04/24/21 02:08 94 04/24/21 01:38 93 04/24/21 01:08 95 04/24/21 00:38 94 04/24/21 00:08 95 04/23/21 23:38 96 04/23/21 23:09 04/23/21 23:08 97 04/23/21 23:07 97 04/23/21 22:38 99 04/23/21 22:23 97 04/23/21 22:06 98 04/23/21 21:51 97 04/23/21 21:36 97 04/23/21 21:21 97 04/23/21 21:06 96 Critical Care Results & Data Vital Signs (Past 12 Hours) Vital Signs Temp Pulse Pulse Resp BP BP BP 04/24/21 08:38 36.7 C 83 20 125/80 04/24/21 08:12 76 04/24/21 08:00 81 16 04/24/21 07:38 36.8 C 77 20 137/76 04/24/21 07:30 77 19 137/76 04/24/21 07:00 76 20 129/85 04/24/21 06:38 36.9 C 78 21 111/90 04/24/21 05:38 36.8 C 79 18 127/79 04/24/21 04:38 36.9 C 77 20 129/80 04/24/21 04:08 36.8 C 77 17 120/80 04/24/21 03:38 36.9 C 78 19 127/78 04/24/21 03:08 36.9 C 79 19 125/78 04/24/21 02:38 36.8 C 82 20 122/81 04/24/21 02:08 37.1 C 85 18 116/81 04/24/21 01:38 37.2 C 85 21 133/89 04/24/21 01:08 37.5 C 82 23 131/86 04/24/21 00:38 36.8 C 86 24 124/82 04/24/21 00:08 37.5 C 85 23 140/89 04/23/21 23:38 37.4 C 89 20 125/86 04/23/21 23:09 88 04/23/21 23:08 37.5 C 88 22 148/84 H 04/23/21 23:07 37.5 C 88 22 130/81 04/23/21 22:38 36.8 C 89 22 134/92 04/23/21 22:23 36.8 C 87 21 134/94 04/23/21 22:06 90 20 134/83 04/23/21 21:51 93 H 22 128/87 04/23/21 21:36 36.8 C 94 H 20 138/92 04/23/21 21:21 36.7 C 94 H 21 135/89 04/23/21 21:06 36.8 C 101 H 20 150/96 H Pulse Ox 04/24/21 08:38 93 04/24/21 08:12 04/24/21 08:00 96 04/24/21 07:38 97 04/24/21 07:30 96 04/24/21 07:00 95 04/24/21 06:38 93 04/24/21 05:38 93 04/24/21 04:38 93 04/24/21 04:08 94 04/24/21 03:38 93 04/24/21 03:08 93 04/24/21 02:38 93 04/24/21 02:08 94 04/24/21 01:38 93 04/24/21 01:08 95 04/24/21 00:38 94 04/24/21 00:08 95 04/23/21 23:38 96 04/23/21 23:09 04/23/21 23:08 97 04/23/21 23:07 97 04/23/21 22:38 99 04/23/21 22:23 97 04/23/21 22:06 98 04/23/21 21:51 97 04/23/21 21:36 97 04/23/21 21:21 97 04/23/21 21:06 96 Lab & Micro Results (Past 24 Hours) RBC 4.11 M/uL (4.2-5.4) L 04/24/21 WBC 6.19 K/uL (4.8-10.8) 04/24/21 Hgb 12.2 g/dL (12.0-16.0) 04/24/21 Hct 37.4 % (37-47) 04/24/21 MCV 91.0 fL (80-100) 04/24/21 MCH 29.7 pg (25-34) 04/24/21 MCHC 32.6 g/dL (32-36) 04/24/21 RDW Standard Deviation 44.4 fL (36.4-46.3) 04/24/21 RDW Coefficient of Variation 13.4 % (11.5-14.5) 04/24/21 Plt Count 327 K/uL (130-400) 04/24/21 MPV 8.5 fL (7.4-10.4) 04/24/21 Nucleated Red Blood Cells % (auto) 0.3 % 04/23/21 Nucleated RBC Absolute Count (auto) 0.04 K/uL (0-0) H 04/23/21 Neutrophils (%) (Auto) 59.1 % 04/24/21 Lymphocytes (%) (Auto) 29.9 % 04/24/21 Monocytes # (Auto) 0.54 K/uL (0.11-0.59) 04/24/21 Eosinophils # (Auto) 0.08 K/uL (0-0.5) 04/24/21 Immature Granulocyte % (Auto) 0.2 % 04/24/21 Neutrophils # (Auto) 3.66 K/uL (1.4-6.5) 04/24/21 Lymphocytes # (Auto) 1.85 K/uL (1.2-3.4) 04/24/21 Monocytes # (Auto) 0.54 K/uL (0.11-0.59) 04/24/21 Eosinophils # (Auto) 0.08 K/uL (0-0.5) 04/24/21 Basophils # (Auto) 0.05 K/uL (0-0.2) 04/24/21 Immature Granulocyte # (Auto) 0.01 K/uL (0.00-0.02) 04/24/21 Na 138 mmol/L (136-145) 04/24/21 K 3.5 mmol/L (3.5-5.1) 04/24/21 Cl 108 mmol/L (98-107) H 04/24/21 CO2 24 mmol/L (21-32) 04/24/21 Anion Gap 6 (3-11) 04/24/21 BUN 8 mg/dl (6-23) 04/24/21 Creatinine 1.11 mg/dl (0.6-1.2) 04/24/21 Estimated GFR ( Amer) 69.5 ml/min 04/24/21 Estimated GFR (Non-Af Amer) 59.9 ml/min 04/24/21 BUN/Creatinine Ratio 7.2 (10-20) L 04/24/21 Glu 75 mg/dl (70-99(Fasting)) 04/24/21 Ca 8.2 mg/dl (8.5-10.1) L 04/24/21 Phosphorus Level 2.8 mg/dl (2.5-4.9) 04/24/21 Total Bilirubin 0.5 mg/dl (0.2-1.0) 04/23/21 AST 30 U/L (13-39) 04/23/21 ALT 18 U/L (7-52) 04/23/21 Alkaline Phosphatase 134 U/L (34-104) H 04/23/21 TP 7.5 gm/dl (6.0-8.3) 04/23/21 Albumin 4.4 gm/dl (3.4-5.0) 04/23/21 Globulin 3.1 gm/dl (2.5-4.0) 04/23/21 Albumin/Globulin Ratio 1.4 (0.9-2) 04/23/21 Mg 2.0 mg/dl (1.7-2.4) 04/24/21 05:11 04/24/21 Calcium Level 8.2 mg/dl (8.5-10.1) L 04/24/21 05:11 04/24/21 Prothromb Time International Ratio 1.1 (0.9-1.1) 04/23/21 19:37 04/23/21 Diagnostic Findings (Past 24 Hours) Chest X-Ray 04/23/21 19:33 XR chest 1V portable HISTORY: Slurred speech. Right-sided weakness. Stroke Like Symptoms COMPARISON: Chest 04/26/2015. FINDINGS: The lungs are clear. The heart remains top normal in size. No pleural effusions. No pneumothorax. IMPRESSION: No acute process. ACT 112: Negative or not required by law. Electronically signed by: Christopher La M.D. 04/23/2021 8:[address] 04/23/21 19:33 CT OF THE HEAD WITHOUT CONTRAST CLINICAL HISTORY: Stroke like symptoms. COMPARISON STUDY: Head CT April 26, 2015. TECHNIQUE: Helical axial images of the head were obtained without IV contrast. Automated exposure control was utilized for the study. A dose lowering technique was utilized adhering to the principles of ALARA. FINDINGS: No acute intracranial hemorrhage, midline shift or mass effect is present. Note is made of encephalomalacia within portions of the left MCA territory. There is associated mild dilatation of the left lateral ventricle. These findings are chronic. There are no findings to suggest acute dural sinus thrombosis or acute territorial infarct. No significant calvarial abnormalities are present. Visualized portions of the sinuses and mastoid air cells are clear. IMPRESSION: 1. No acute intracranial findings. 2. 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 ACT 112: Negative or not required by law. Electronically signed by: Juan Antonio Nichols M.D. 04/23/2021 7:52 PM Head CTA 04/23/21 19:33 HEAD & NECK CTA HISTORY: Slurred speech. Right facial droop. Right-sided weakness. Stroke Like Symptoms TECHNIQUE: Multiaxial CT images of the head were performed following the intravenous administration of contrast to evaluate the major cerebral vessels. Multiaxial CT images of the neck were also performed following the intravenous administration of contrast to evaluate the major cervical vessels. Maximum intensity projection images were also obtained. A dose lowering technique was utilized adhering to the principles of ALARA. COMPARISON: Head CT 04/26/2015. FINDINGS: The major dural venous sinuses are patent. Visualized intracranial internal carotid arteries, distal vertebral arteries, and basilar artery are widely patent. There is no significant stenosis, occlusion, or aneurysm seen within the bilateral ACAs, right MCA, or assignment officer. Slightly attenuated left MCA branches in comparison to the right. This is likely due to the chronic encephalomalacia seen within the left MCA territory consistent with an old infarct. The aortic arch and proximal great vessels are widely patent. There is no significant stenosis, occlusion, or dissection identified within the bilateral common carotid, internal carotid, or vertebral arteries. Mild partially calcified plaque within the left carotid bulb. IMPRESSION: 1. Attenuated left MCA branches likely corresponding to the old left MCA territory infarct. The remaining cerebral arteries show no significant stenosis, occlusion, or aneurysm. 2. No significant stenosis, occlusion, or dissection identified within the carotid or vertebral arteries. ACT 112: Negative or not required by law. Electronically signed by: Christopher La M.D. 04/23/2021 7:59 PM Neck CTA 04/23/21 19:33 HEAD & NECK CTA HISTORY: Slurred speech. Right facial droop. Right-sided weakness. Stroke Like Symptoms TECHNIQUE: Multiaxial CT images of the head were performed following the intravenous administration of contrast to evaluate the major cerebral vessels. Multiaxial CT images of the neck were also performed following the intravenous administration of contrast to evaluate the major cervical vessels. Maximum intensity projection images were also obtained. A dose lowering technique was utilized adhering to the principles of ALARA. COMPARISON: Head CT 04/26/2015. FINDINGS: The major dural venous sinuses are patent. Visualized intracranial internal carotid arteries, distal vertebral arteries, and basilar artery are widely patent. There is no significant stenosis, occlusion, or aneurysm seen within the bilateral ACAs, right MCA, or assignment officer. Slightly attenuated left MCA branches in comparison to the right. This is likely due to the chronic encephalomalacia seen within the left MCA territory consistent with an old infarct. The aortic arch and proximal great vessels are widely patent. There is no significant stenosis, occlusion, or dissection identified within the bilateral common carotid, internal carotid, or vertebral arteries. Mild partially calcified plaque within the left carotid bulb. IMPRESSION: 1. Attenuated left MCA branches likely corresponding to the old left MCA territory infarct. The remaining cerebral arteries show no significant stenosis, occlusion, or aneurysm. 2. No significant stenosis, occlusion, or dissection identified within the carotid or vertebral arteries. ACT 112: Negative or not required by law. Electronically signed by: Christopher La M.D. 04/23/2021 7:59 PM I & O Totals 24 Hours 04/23/21 04/24/21 04/25/21 06:59 06:59 06:59 Intake Total 900 / 900 Output Total 350 / 350 Balance 900 / 900 -350 / -350 Cumulative 04/23/21 19:24 thru 04/24/21 08:13 Intake Total 900 Output Total 350 Balance 550 RT Ventilator Mngmt (Last Documented) Ventilator Ordered Settings Respiratory Rate 20 04/24/21 08:38 Ventilator - PT Measurements Respiratory Rate 20 Coding Level of Care Code 53044 Subseq Hosp Care Lvl 3 Diagnoses Acute CVA (cerebrovascular accident) I63.9 Anxiety disorder F41.9 H/O inguinal hernia repair Z98.890; Z87.19 Weakness R53.1 Slurred speech R47.81
--- NOTE | 2021-04-24 12:52 | Electrocardiogram Report ---
Test Reason : Blood Pressure : / mmHG Vent. Rate : 111 BPM Atrial Rate : 111 BPM P-R Int : 156 ms QRS Dur : 064 ms QT Int : 336 ms P-R-T Axes : 041 049 013 degrees QTc Int : 456 ms Poor data quality, interpretation may be adversely affected Sinus tachycardia Low voltage QRS Cannot rule out Anteroseptal infarct (cited on or before 03-APR-2011) Abnormal ECG When compared with ECG of 26-APR-2015 11:00, Questionable change in initial forces of Anterior leads Confirmed by Magnus Germain ([id number]) on 04/24/2021 12:51:56 PM Referred By: REFERRED SELF Confirmed By:Magnus Germain
--- NOTE | 2021-04-24 13:06 | Hospitalist Progress Note ---
Date of Service April 24, 2021 Assessment & Plan (1) Recurrent cerebrovascular accidents (CVAs): Plan: Acute CVA H/O left MCA territory infarct in 2016 H/O PFO as per records Prior CVA due to OCPs as per patient. Currently not on OCPs --Head CT:No acute intracranial findings. 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 --Head/Neck CTA:Attenuated left MCA branches likely corresponding to the old left MCA territory infarct. The remaining cerebral arteries show no significant stenosis, occlusion, or aneurysm. No significant stenosis, occlusion, or dissection identified within the carotid or vertebral arteries. ---ECHO: Left ventricle is normal in size. Borderline concentric LVH. Left ventricle wall motion is normal. EF 60 to 65%. Grade 1 diastolic dysfunction. No significant valvular disease --MRI Brain:pending --LDL:33 HbA1C:pending --S/P TPA On aspirin 81 mg, atorvastatin 20 mg daily at home Currently Aspirin held due to TPA Continue statin PT OT, speech eval requested Appreciate critical care input Neurology consulted as well Hypertension BP stable Losartan held Monitor Hyperlipidemia on statin Anxiety/mood disorder Continue home meds Hypokalemia Replace as needed DVT Px: SCDs for now Code Status Full code Admission and Anticipated Discharge Date Admission Date: April 23, 2021 Subjective Patient is seen and examined at bedside States feeling much better today Slurred speech resolved Denies any dizziness, headache, change in vision, dysphagia, chest pain, shortness of breath Offers no other complaints Review of Systems Review of Systems: All systems reviewed & are unremarkable except as noted in Subjective Physical Exam Physical Exam: Physical Exam: Vitals signs as noted above General Appearance:Morbidly Obese, no apparent distress Head: normocephalic, Atraumatic Eyes: normal inspection, EOMI Neck: supple, Trachea midline Respiratory/Chest: Normal breath sounds, CTA, No accessory muscle use Cardiovascular: S1, S2, No murmur Abdomen/GI:Soft, Non tender, Bowel sounds present Extremities/Musculoskeletal:normal inspection, no edema Neurologic/Psych:AAOX3, grossly no focal neurological deficits Skin: normal color, warm Results & Data Results & Data ([facility]) Vital Signs (Past 12 Hours) Vital Signs Temp Pulse Pulse Resp BP BP Pulse Ox 04/24/21 12:38 36.9 C 87 18 115/73 96 04/24/21 11:38 37 C 90 20 126/81 93 04/24/21 11:00 86 25 H 93 04/24/21 10:38 36.8 C 83 20 122/75 92 04/24/21 10:33 86 19 122/75 92 04/24/21 10:00 88 17 95 04/24/21 09:45 36.7 C 89 20 123/91 94 04/24/21 09:38 36.7 C 84 20 123/91 95 04/24/21 09:35 84 15 123/91 89 L 04/24/21 09:00 90 14 93 04/24/21 08:39 80 18 125/85 91 04/24/21 08:38 36.7 C 83 20 125/80 93 04/24/21 08:36 82 24 156/102 H 95 04/24/21 08:12 76 04/24/21 08:00 81 16 96 04/24/21 07:38 36.8 C 77 20 137/76 97 04/24/21 07:30 77 19 137/76 96 04/24/21 07:00 76 20 129/85 95 04/24/21 06:38 36.9 C 78 21 111/90 93 04/24/21 05:38 36.8 C 79 18 127/79 93 04/24/21 04:38 36.9 C 77 20 129/80 93 04/24/21 04:08 36.8 C 77 17 120/80 94 04/24/21 03:38 36.9 C 78 19 127/78 93 04/24/21 03:08 36.9 C 79 19 125/78 93 04/24/21 02:38 36.8 C 82 20 122/81 93 04/24/21 02:08 37.1 C 85 18 116/81 94 04/24/21 01:38 37.2 C 85 21 133/89 93 04/24/21 01:08 37.5 C 82 23 131/86 95 Laboratory Results Short CBC 04/23/21 04/24/21 Range/Units 19:37 05:11 WBC 11.84 H 6.19 (4.8-10.8) K/uL Hgb 14.6 12.2 (12.0-16.0) g/dL Hct 43.7 37.4 (37-47) % Plt Count 406 H 327 (130-400) K/uL BMP 04/23/21 04/24/21 19:37 05:11 Sodium 138 138 Potassium 3.2 L 3.5 Chloride 102 108 H Carbon Dioxide 22 24 BUN 9 8 Creatinine 1.27 H 1.11 Glucose 119 H 75 Calcium 8.8 8.2 L Cardiac Enzymes 04/23/21 Range/Units 19:37 Troponin I < 0.03 (0-0.04) ng/ml Liver Function 04/23/21 Range/Units 19:37 Total Bilirubin 0.5 (0.2-1.0) mg/dl AST 30 (13-39) U/L ALT 18 (7-52) U/L Alkaline Phosphatase 134 H (34-104) U/L Albumin 4.4 (3.4-5.0) gm/dl Urine 04/24/21 Range/Units Unknown Urine Color Yellow Urine Appearance Clear (Clear) Urine pH 5.0 (4.5-7.5) Ur Specific [place] >= 1.045 H (1.000-1.030) Urine Protein 1+ H (Negative) Urine Glucose (UA) Negative (Negative)
--- NOTE | 2021-04-24 16:53 | Consultation Report ---
NEUROLOGY CONSULTATION NOTE DATE OF CONSULTATION: 04/24/2021. CONSULTING PROVIDER: Dr. Amol Saunders. CHIEF COMPLAINT: Dysarthria. HISTORY OF PRESENT ILLNESS: A 45-year-old female with a history of a left MCA ischemic stroke in 2015 with no residual deficits, on aspirin as well as known PFO and anxiety, presented to the Emergency Department yesterday after experiencing dizziness and slurred speech. Symptom onset was around 7:05 p.m. On arrival to the Emergency Department, stroke alert was called. CT head was negative for acute intracranial abnormality. CTA of the head and neck was also pursued. The patient was seen by tele-neurology and given IV tPA. She received tPA at 8:23 p.m. last night. The patient was transferred to the ICU for 24-hour monitoring post-tPA. After administration of tPA, symptoms had resolved. No focal neurological deficits were noted. ALLERGIES: PENICILLINS, BEE VENOM, ORTHO TRI-CYCLEN "ESTROGEN-CONTAINING CONTROL." HOME MEDICATIONS: Vitamin D, losartan, aspirin 81 mg, Lipitor 20 mg, Wellbutrin, fluoxetine, gabapentin. PAST MEDICAL HISTORY: Ischemic stroke in 2016, varicella, patent foramen ovale. PAST SURGICAL HISTORY: Hernia repair, pyloromyotomy. FAMILY HISTORY: Her aunt had breast cancer. Her father had diabetes and hypertension. Her mother had heart disease. Her grandmother had osteoporosis. SOCIAL HISTORY: She is a nonsmoker. She is . Denies any heavy alcohol use. REVIEW OF SYSTEMS: Positive for slurred speech and dizziness. Otherwise, all other review of systems was negative. PHYSICAL EXAMINATION: VITAL SIGNS: Blood pressure 126/81, pulse is 90, respiratory rate is 20, temperature 37.0 degrees Celsius, oxygen saturation is 93% on room air. GENERAL: The patient appears stated age, well developed, in no acute distress. HEENT: Head is normocephalic and atraumatic. Eyes are midline. Conjunctivae is normal. NECK: Supple. LUNGS: Normal respiratory effort. CARDIAC: Pulses are intact. ABDOMEN: Nondistended. PSYCHIATRIC: Normal mood and normal affect. NEUROLOGIC: She is awake, alert, oriented to person, place, and time. Speech is clear. No aphasia. Comprehension is intact. She is following commands. Memory is normal. Pupils are symmetric. No visual field deficit on confrontation. Face is symmetric. Tongue is midline. Extraocular muscles intact. Shoulder shrug is intact. No focal weakness in the upper or lower extremities. Sensation is intact to light touch. No tremor or myoclonic jerks. No ataxia with [id number] testing. Toes are downgoing. Negative Lidia sign. DIAGNOSTIC TESTING AND LABORATORY VALUES: WBC 6.19, hemoglobin 12.2, platelet count 327. INR 1.1. Sodium 138, potassium 3.5, chloride 108, carbon dioxide 24, BUN 8, creatinine 1.11, glucose 81, calcium 8.2, magnesium 2.0. Triglycerides 49, LDL 33, HDL 45. Urinalysis showed 3+ blood, positive nitrites, 30 RBCs, 20-30 epithelial cells, 2+ bacteria. Urine culture is pending. IMAGING: Head CT noncontrast showed no acute intracranial findings. No hemorrhage. Encephalomalacia within the portions of the left MCA territory consistent with old infarct. Head CTA; attenuation of the left MCA branches, likely corresponding to the old left MCA territory infarct. The remaining cerebral arteries show no significant stenosis, occlusion or aneurysm. No significant stenosis, occlusion or dissection identified in the carotid or vertebral arteries. ASSESSMENT AND PLAN: A 45-year-old woman with a history of left middle cerebral artery ischemic stroke, thought to be associated with a patent foramen ovale, on aspirin, admitted with intermittent slurred speech, status post IV tPA. Symptoms have since resolved. Neurological exam is back to baseline. MRI of the brain is pending. Currently, holding antiplatelet agents until 24 hours after receiving IV tPA. Urine culture is pending. Urinalysis is possibly suggestive of a urinary tract infection. Patient denies urinary symptoms. One differential diagnosis certainly includes unmasking of stroke-like symptoms related to previous or chronic left middle cerebral artery ischemic stroke due to infection. Agree with ruling out urinary tract infection. Otherwise, after repeat CT head noncontrast in 24 hours, Pending results of urine culture, we will consider starting dual antiplatelet therapy as well as pending results of repeat CT head noncontrast. Otherwise, the patient will need to follow up with cardiology for her patent foramen ovale as an outpatient. PFO not assessed on recent TTE. The patient will benefit from following up with neurology as outpatient and prefers to stick with [facility] Neu[facility]. Dr. Coronel and Soheila Lanier will be resuming service tomorrow and will follow up MRI brain and CT head results. Job ID: [id number] MTDD
[2021-04-24] MEDS: CEFEPIME 2,000 MG in SYRINGE 0 ML IV SCH (20:25)
--- NOTE | 2021-04-24 21:36 | CT Scan Report ---
CT head/brain wo con CLINICAL HISTORY: post CVA Technique: Contiguous axial CT images of the head were acquired from the base of the skull to the meme sky without intravenous contrast administration. Images were viewed in brain, subdural and bone [facility]. Automated dose lowering techniques and/or adjustment according to patient size were utilized for this exam. Comparison: None available at the time of this dictation. Findings: Encephalomalacia in the left MCA territory is again seen compatible with prior infarct. No evidence o f intracranial hemorrhage. Imaged portions of the paranasal sinuses and mastoid air cells are clear. The orbits appear normal. There are no acute fractures of the calvaria or scalp swelling. Impression: Redemonstration of encephalomalacia in the left MCA territory. No evidence of hemorrhage or other acu te finding. ACT 112: Negative or not required by law. Electronically signed by: Montrell Andrade M.D. 04/24/2021 9:35 PM
[2021-04-25] MEDS: CEFEPIME 2,000 MG in SYRINGE 0 ML IV SCH (04:35)
[2021-04-25 05:37] LABS: Hematocrit (blood only) 37.8 % (37-47); Hemoglobin 12.5 g/dL (12.0-16.0); Mean Corpuscular Hgb Conc 33.1 g/dL (32-36); Mean Corpuscular Volume 90.9 fL (80-100); Mean Platelet Volume 8.5 fL (7.4-10.4); Platelet Count 338 K/uL (130-400); RDW Coefficient of Variation 13.5 % (11.5-14.5); RDW Standard Deviation 44.9 fL (36.4-46.3); Red Blood Count 4.16 M/uL (4.2-5.4); White Blood Count 5.16 K/uL (4.8-10.8)
[2021-04-25 06:28] LABS: BUN Creatinine Ratio 8.7 (10-20); Calcium 8.2 mg/dl (8.5-10.1); Creatinine Clr Calc Pharmacy 68.7 ml/min; Est GFR (Non-African American) 65.6 ml/min; Magnesium 1.9 mg/dl (1.7-2.4); Phosphorus 3.1 mg/dl (2.5-4.9); Potassium 3.7 mmol/L (3.5-5.1)
[2021-04-25 07:39] LABS: Estimated Average Glucose 103 mg/dl; Hemoglobin A1C 5.2 % (4.5-5.6)
[2021-04-25] MEDS: FLUoxetine HCL 20 MG CAP PO SCH (08:13)
[2021-04-25] MEDS: GABAPENTIN 400 MG CAP PO SCH ×2 (08:13→12:20)
[2021-04-25] MEDS: buPROPion XL 300 MG TABCR PO SCH (08:13)
[2021-04-25] MEDS: ATORVASTATIN 20 MG TAB PO SCH (08:13)
--- NOTE | 2021-04-25 08:46 | Magnetic Resonance Report ---
MRI OF THE BRAIN WITHOUT CONTRAST CLINICAL HISTORY: Slurred speech. Weakness. Evaluate for cerebrovascular accident. Previous stroke. COMPARISON STUDY: Head CT April 24, 2021. CTA of the head April 23, 2021. TECHNIQUE: Utilizing a 1.5 Rissa magnet and dedicated coil, multiplanar, multiecho imaging of the bra in was performed without IV contrast. FINDINGS: There are no foci of restricted diffusion to suggest acute infarct. No acute intracranial h emorrhage, midline shift or mass effect is present. Note is made of encephalomalacia within portions of the left temporal, frontal and parietal lobes consistent with old left MCA territory infarct. Asso ciated mild asymmetric dilatation of the left lateral ventricle is present A few old lacunar infarcts within left cerebellar hemisphere present. No intracranial mass is identified on this unenhanced exa m. Calvarial signal is normal. Orbits are unremarkable. Flow-voids for the major intracranial vessels are present. IMPRESSION: 1. No acute intracranial findings. No evidence for acute infarct. 2. Encephalomalacia with within portions of the left MCA territory consistent with old infarct. A few old lacunar infarcts within the left cerebellar hemisphere. ACT 112: Negative or not required by law. Electronically signed by: Juan Antonio Nichols M.D. 04/25/2021 8:45 AM
--- NOTE | 2021-04-25 08:51 | Critical Care Progress Note ---
Date of Service April 25, 2021 Assessment & Plan (1) Acute CVA (cerebrovascular accident): Plan: Impression: 45-year-old female presents to the ICU following TPA administration for presumed cerebrovascular accident for 24-hour post TPA monitoring protocol. Neuro - CVApatient with initial symptoms of weakness/dizziness, and slurred speech as described in HPI. Received TPA at 2022 per [facility] neurology recommendations. Patient now without neurological deficits. -Patient does have history of left MCA territory infarct from 2016 which was visualized on CT imaging. No residual deficits from the stroke. -CT head, CTA head and neck without acute intracranial processes -MRI without acute insult -Echo pending -Neurology consulted, follow-up for aspirin Plavix recommendations -Follow-up A1c and lipid panel -24-hour post TPA protocol in ICU, follow-up 24-hour CT head negative Anxiety disordercontinue Wellbutrin, Prozac Cardiac - No significant cardiac history. Patient normal sinus rhythm and hemodynamically stable on monitor. History of previous PFO Continuous monitor on telemetry Respiratory - No history of pulmonary disease. Currently maintaining oxygen saturation on room air without labored breathing. Continuous monitoring pulse ox RENAL/LYTES - VIOLET?Creatinine 1.27, unsure of baseline -Improved creatinine - Strict I's and O's ENDO - No history of diabetes or thyroid disease ICU hyperglycemic protocol HEME - H&H stable, monitor for bleeding and routine CBCs ID - Medication for infectious process at this time LINES/IV ACCESS - Peripheral IVs DVT PROPHYLAXIS - Lovenox Stable for downgrade out of ICU (2) Anxiety disorder: (3) H/O inguinal hernia repair: (4) Weakness: (5) Slurred speech: Admission and Anticipated Discharge Date Admission Date: April 23, 2021 Subjective Patient seen and examined. Alert and awake. No acute events. Hemodynamically stable. No neurological events. Review of Systems Review of Systems: All systems reviewed & are unremarkable except as noted in HPI & below Physical Exam Physical Exam: General: Alert. nontoxic. Skin: Warm, dry, Head: Atraumatic Ears, nose, mouth and throat: airway patent Cardiovascular: Normal peripheral perfusion Respiratory: No respiratory distress. Clear to auscultation bilaterally. Gastrointestinal: Non distended Musculoskeletal: No deformity Neuro: 5 out of 5 strength throughout. No focal deficits. Results & Data Results & Data ([facility]) Vital Signs (Past 12 Hours) Vital Signs Temp Pulse Resp BP Pulse Ox 04/25/21 08:18 36.6 C 04/25/21 08:12 92 H 27 H 116/96 94 04/25/21 07:00 83 18 126/95 90 04/25/21 06:00 86 25 H 126/99 88 L 04/25/21 05:00 82 22 124/80 91 04/25/21 04:00 82 23 125/75 93 04/25/21 03:01 85 11 L 115/68 95 04/25/21 02:00 81 17 134/86 92 04/25/21 01:00 84 20 133/78 91 04/25/21 00:00 82 23 132/91 90 04/24/21 23:31 84 27 H 131/90 94 04/24/21 22:01 85 23 134/90 92 04/24/21 22:00 36.8 C 83 22 134/90 91 Coding Level of Care Code 47460 Subseq Hosp Care Lvl 3 Diagnoses Acute CVA (cerebrovascular accident) I63.9 Anxiety disorder F41.9 H/O inguinal hernia repair Z98.890; Z87.19 Weakness R53.1 Slurred speech R47.81
[2021-04-25] MEDS ORDERED: ENOXAPARIN INJ 40 MG/0.4 ML SYR SQ SCH (09:00)
[2021-04-25] MEDS ORDERED: ASPIRIN 81 MG ECTAB PO SCH (09:00)
[2021-04-25] MEDS ORDERED: cefTRIAXone SODIUM 2,000 MG in DEXTROSE 5% 50 ML IV SCH (12:00)
--- NOTE | 2021-04-25 13:05 | Hospitalist Progress Note ---
Date of Service April 25, 2021 Assessment & Plan (1) Recurrent cerebrovascular accidents (CVAs): Plan: Acute CVA: Possibly TIA H/O left MCA territory infarct in 2016 H/O PFO as per records Prior CVA due to OCPs as per patient. Currently not on OCPs --Head CT:No acute intracranial findings. 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 --Head/Neck CTA:Attenuated left MCA branches likely corresponding to the old left MCA territory infarct. The remaining cerebral arteries show no significant stenosis, occlusion, or aneurysm. No significant stenosis, occlusion, or dissection identified within the carotid or vertebral arteries. ---ECHO: Left ventricle is normal in size. Borderline concentric LVH. Left ventricle wall motion is normal. EF 60 to 65%. Grade 1 diastolic dysfunction. No significant valvular disease --MRI Brain: No acute intracranial findings. No evidence for acute infarct. Encephalomalacia with within portions of the left MCA territory consistent with old infarct. A few old lacunar infarcts within the left cerebellar hemisphere. --LDL:33 HbA1C: 5.2 --S/P TPA On aspirin 81 mg, atorvastatin 20 mg daily at home Continue statin PT OT, speech eval completed Appreciate critical care/Neurology input Neurology recommends to continue aspirin, plavix for 3 weeks and then transition to plavix alone Patient prefers to follow-up with her primary neurologist at [place] upon discharge. UTI: POA Urine Cx:Gram Negative Bacilli Received IV Rocephin today Will transition to PO antibiotics upon discharge Advised to follow-up with PCP regarding final urine culture. Hypertension BP stable Resume Losartan Monitor Hyperlipidemia on statin Anxiety/mood disorder Continue home meds Hypokalemia Replace as needed DVT Px: SCDs for now Code Status Full code Admission and Anticipated Discharge Date Admission Date: April 23, 2021 Subjective Patient is seen and examined at bedside Doing well today No recurrence of symptoms Discussed with Neurology today Denies any dizziness, headache, change in vision, dysphagia, chest pain, shortness of breath, dysuria Review of Systems Review of Systems: All systems reviewed & are unremarkable except as noted in Subjective Physical Exam Physical Exam: Physical Exam: Vitals signs as noted above General Appearance:Morbidly Obese, no apparent distress Head: normocephalic, Atraumatic Eyes: normal inspection, EOMI Neck: supple, Trachea midline Respiratory/Chest: Normal breath sounds, CTA, No accessory muscle use Cardiovascular: S1, S2, No murmur Abdomen/GI:Soft, Non tender, Bowel sounds present Extremities/Musculoskeletal:normal inspection, no edema Neurologic/Psych:AAOX3, grossly no focal neurological deficits Skin: normal color, warm Results & Data Results & Data ([facility]) Vital Signs (Past 12 Hours) Vital Signs Temp Pulse Pulse Resp BP BP Pulse Ox 04/25/21 12:28 36.6 C 90 18 118/64 96 04/25/21 12:00 89 18 118/64 96 04/25/21 10:00 86 19 95 04/25/21 08:18 36.6 C 04/25/21 08:12 92 H 27 H 116/96 94 04/25/21 07:00 83 18 126/95 90 04/25/21 06:00 86 25 H 126/99 88 L 04/25/21 05:00 82 22 124/80 91 04/25/21 04:00 82 23 125/75 93 04/25/21 03:01 85 11 L 115/68 95 04/25/21 02:00 81 17 134/86 92 Laboratory Results Short CBC 04/25/21 Range/Units 04:52 WBC 5.16 (4.8-10.8) K/uL Hgb 12.5 (12.0-16.0) g/dL Hct 37.8 (37-47) % Plt Count 338 (130-400) K/uL BMP 04/25/21 04:52 Sodium 139 Potassium 3.7 Chloride 108 H Carbon Dioxide 23 BUN 9 Creatinine 1.03 Glucose 79 Calcium 8.2 L
[2021-04-25] MEDS ORDERED: STROKE PATIENT DISCHARGE STA (15:09)
--- NOTE | 2021-04-25 15:13 | Discharge Summary ---
Date of Service April 25, 2021 Admission HPI Per Admitting Provider History obtained from patient, family, and records. Medical history significant for ischemic CVA, hypertension, hyperlipidemia, anxiety/mood disorder, past tobacco abuse. Patient confined at [facility] last March 2015 for left frontoparietal ischemic CVA presenting as slurred speech with right-sided weakness/numbness thought to be cardioembolic due to small PFO. No TPA during confinement. Patient discharged was on dual antiplatelet Rx (ASA, Plavix). Plavix discontinued after 1 year. Patient was also on citicoline as of last outpatient [facility] neurologist visit last April 2016. Patient took a nap around 4 PM today. When she woke up around 6 PM, patient noted to have slurred speech as per . No headache, no chest pain, no S OB, no arm or leg weakness. Patient compliant with home medications. Depre ssion not the best as per patient although she denies suicidality. Stroke alert called upon arrival at the ER. IV tPA administered as per [facility] stroke specialist recommendations. Some improvement in slurred speech noted by post TPA administration. 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 Admission Exam Per Admitting Provider Physical Exam Physical Exam: GENERAL: Comfortable, slightly anxious, morbidly obese, mildly dysarthric, no respiratory distress SKIN: Normal color, warm HEENT: [place] palpebral conjunctivae, no ptosis, dry buccal mucosa NECK : Supple, short neck, no tenderness CHEST : CTA, no tenderness HEART : RRR, no obvious murmurs ABDOMEN: Some distention, nontender EXTREMITIES : Minimal LE swelling, no LE tenderness, no other conspicuous deformities noted NEUROLOGIC : Coherent, no facial asymmetry, mild dysarthria, gait and stance not assessed Principal Diagnosis Transient ischemic attack Urinary tract infection Discharge Data Allergies Allergy/AdvReac Type Severity Reaction Status Date / Time ethinyl estradiol Allergy Unknown neuro Verified 04/23/21 19:48 [From Ortho Tri-Cyclen (28)] complications norgestimate Allergy Unknown neuro Verified 04/23/21 19:48 [From Ortho Tri-Cyclen (28)] complications Penicillins Allergy Unknown unkn Verified 04/23/21 19:48 bee venom protein (honey bee) AdvReac Unknown SWELLING Verified 12/21/20 09:04 Consultations 04/23/21 20:46 ED Decision to Admit Stat 04/23/21 23:09 Consult Agile Qa Tester Routine Consult Neurology Routine Ordered Studies 04/23/21 19:33 CT angio head w con Stat CT angio neck with con Stat CT head/brain wo con Stat 04/24/21 21:00 CT head/brain wo con Routine 04/24/21 23:09 MR brain wo con Routine Hospital Course (1) Recurrent cerebrovascular accidents (CVAs): Acute CVA: Possibly TIA H/O left MCA territory infarct in 2016 H/O PFO as per records Prior CVA due to OCPs as per patient. Currently not on OCPs --Head CT:No acute intracranial findings. 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 --Head/Neck CTA:Attenuated left MCA branches likely corresponding to the old left MCA territory infarct. The remaining cerebral arteries show no significant stenosis, occlusion, or aneurysm. No significant stenosis, occlusion, or dissection identified within the carotid or vertebral arteries. ---ECHO: Left ventricle is normal in size. Borderline concentric LVH. Left ventricle wall motion is normal. EF 60 to 65%. Grade 1 diastolic dysfunction. No significant valvular disease --MRI Brain: No acute intracranial findings. No evidence for acute infarct. Encephalomalacia with within portions of the left MCA territory consistent with old infarct. A few old lacunar infarcts within the left cerebellar hemisphere. --LDL:33 HbA1C: 5.2 --S/P TPA On aspirin 81 mg, atorvastatin 20 mg daily at home Continue statin PT OT, speech eval completed Appreciate critical care/Neurology input Neurology recommends to continue aspirin, plavix for 3 weeks and then transition to plavix alone Patient prefers to follow-up with her primary neurologist at [place] upon discharge. UTI: POA Urine Cx:Gram Negative Bacilli Received IV Rocephin today Will transition to PO antibiotics upon discharge Advised to follow-up with PCP regarding final urine culture. Hypertension BP stable Resume Losartan Monitor Hyperlipidemia on statin Anxiety/mood disorder Continue bupropion Fluoxetine dose is decreased from 40 to 20 mg daily given interaction with clopidogrel Advised to follow-up with psychiatry as outpatient for further adjustment of medications as needed. Hypokalemia Replace as needed DVT Px: SCDs for now Code Status Full code Total Time Total Time Spent Total Time Spent (In Minutes): 45 minutes Discharge Plan Discharge Items Patient Disposition: Home - Self-Care Reason For Visit: CVA Discharge Diagnosis: Transient ischemic attack Urinary tract infection Activity: Per Instructions section Exercise/Sports: Gradually increase as tolerated Non-emergency contact: Primary Care Provider and Neurologist Call non-emergency contact if: you have any medication questions, your symptoms worsen, your pain is concerning for you and you have a fever Follow-up/Referrals: Ghada Irving MD [Hospitalist] - (Date & Time 05/02/2021 11:00 AM Provider Ghada Irving MD Department General Internal Medicine [facility] ) Diet: Heart Healthy Addtl Attending Provider Instructions: Follow-up with your primary care physician on 05/02/2021 11:00 AM Follow-up with your neurologist at [facility] in 2 to 3 weeks. Follow-up with your tailercpa for further management of patent foramen ovale as outpatient as recommended by your neurologist. --- Complete the antibiotic course (Cefdinir) for urinary tract infection as prescribed. Discuss with your physician regarding final urine cultures (pending at the time of discharge) and also need for further adjustment of antibiotics based on the cultures. --- Start taking aspirin 81 mg, Plavix 75 mg daily for 3 weeks and then take Plavix alone as per your neurologist. --- Your Fluoxetine is decreased to 20 mg daily given possible interaction with clopidogrel. Further adjustment of your medications as prior physician. Seek immediate medical attention if your symptoms reoccur or worsen Please take all medications as instructed on discharge list below. Please call if you have any questions or problems. You can reach a [facility] hospitalist on duty at [facility] 24 hours a day by calling [phone] Risk Factors for Stroke: You can reduce your chances of stroke by working with your medical provider to adopt a healthy lifestyle. Some specific ways to lower your chance of stroke are: * If you are a smoker, now is the time to stop smoking cigarettes * If you are diabetic, improve the control of your blood sugars * Avoid excessive amounts of alcohol * Control high blood pressure * Lose weight if you are overweight * Be sure to lead an active lifestyle * Eat a healthy diet low in salt, cholesterol and fat You should know about other risk factors for stroke that you are unable to control. These include: * Age 55 years or older * Male gender * Certain racial groups: , or / * Family History of Stroke, Mini stroke or Heart Attack * Sickle Cell Disease Follow Up: It is important for you to keep your follow up appointments with your medical provider. Who to Call and When: Medical Emergencies: Call 911 immediately if you experience any of the following warning signs and symptoms of Stroke: * Sudden numbness or weakness of the face, arm or leg, especially on one side of the body * Sudden confusion, trouble speaking or understanding * Sudden trouble seeing in one or both eyes * Sudden trouble walking, dizziness, loss of balance or coordination * Sudden severe headache with no cause Do not delay calling 911 if you experience any warning signs or symptoms of a stroke. Delay in seeking medical attention may affect what treatments can be given to you. . Pending Studies at Discharge: Yes Studies:: Urine Culture Stand-Alone Forms: My [facility] [employer], Smoking Cessation Medications and DC Order Prescriptions: New cefdinir 300 mg capsule 300 mg PO BID Qty: 6 RF: 0 clopidogrel 75 mg tablet 75 mg PO DAILY Qty: 30 RF: 1 fluoxetine 20 mg capsule 20 mg PO DAILY Qty: 30 RF: 1 Continued losartan 25 mg tablet 25 mg PO DAILY RF: 0 cholecalciferol (vitamin D3) 2,000 unit capsule 2,000 units PO DAILY RF: 0 atorvastatin 20 mg tablet 20 mg PO DAILY RF: 0 bupropion HCl 300 mg tablet extended release 24 hr 300 mg PO DAILY RF: 0 gabapentin 400 mg capsule 400 mg PO TID RF: 0 aspirin [Aspirin Low Dose] 81 mg Tablet,Delayed Release (Dr/Ec) 81 mg PO DAILY RF: 0 Discontinued fluoxetine 40 mg capsule 40 mg PO DAILY RF: 0 Discharge Orders: Discharge Order (Routine); Ordered 04/25/21 Ordered By: Amol Saunders Admission Data Admit Date/Time: 04/23/21 21:52 Attending Provider: Amol Saunders Admit Provider: Joce Martinez Primary Care Provider: Henry Tafoya Other Providers: Joce Martinez ; Reddy Powell ; Soheila Lanier ; Yash Sepulveda Kathleen ; Rai Jacome Other Interventions: Discharge Summary Assessment (RN) Last Done: 04/25/21 12:28
== END 2021-04-25 15:52 | disposition home or self-care (01) | DRG 62 ==
LOC: ED 19:24 → 1E 21:52

== ENCOUNTER 2022-04-08 09:10 | Observation (INO) ==
--- NOTE | 2022-04-08 09:55 | Emergency Department Note ---
Impression & Plan Dysarthria, Weakness, Hallucinations ED Provider Note ED Provider Note NAME: HORACE TRIPP AGE:46 SEX: Female : 1975 ARRIVES VIA: Private vehicle INFORMANT: Patient ED PROVIDER(s): Claudia Sloan DO CHIEF COMPLAINT: Slurred speech, hallucinations HPI: This is a 46-year-old female presents emergency department complaining of hallucinations and slurred speech. Patient states the slurred speech has been going on for approximately 1 week. Patient states she has had prior slurred speech with a prior stroke. She states the hallucinations began yesterday afternoon. She states initially she saw mice and then rats in her apartment. Patient does live alone. She states she then went to her car, and later noticed that there was a "[place]" under the car. She then ran back inside. She did contact both her estranged and her brother telling them of these events. Patient denies any recent fevers, chills, or illness. She denies headaches, vision changes, nausea or vomiting. Patient states she has been intermittently weak in her right leg over the course of the last month. She denies any arm weakness. She denies trouble swallowing. Patient states her prior stroke was related to having a blood clot from control pills which then went through a hole in her heart leading to a stroke. PAST MEDICAL HISTORY:See Below PAST SURGICAL HISTORY:See Below FAMILY HISTORY:See Below SOCIAL HISTORY:See Below HOME MEDICATIONS:See Below ALLERGIES:See Below VITALS:See Below PHYSICAL EXAMINATION: GENERAL: alert, well appearing, well nourished, no distress, non-toxic EYE EXAM: normal conjunctiva, PERRL and EOM's grossly intact OROPHARYNX: no exudate, no erythema, lips, buccal mucosa, and tongue normal and mucous membranes are moist NECK: supple, no nuchal rigidity, no adenopathy, non-tender LUNGS: Clear to auscultation. Normal chest wall mechanics, no w/r/r HEART: no murmurs, S1 normal and S2 normal ABDOMEN: abdomen soft, non-tender, normo-active bowel sounds, no masses, no rebound or guarding. BACK: Back is symmetrical on inspection and there is no deformity, no midline tenderness, no CVA tenderness. SKIN: no rashes, petechiae, orbruising UPPER EXTREMITIES: upper extremities are grossly normal. FROM, nml pulses b/l. LOWER EXTREMITIES: No pitting edema. FROM, nml pulses b/l. NEURO EXAM: Normal sensorium, cranial nerves II-XII grossly intact, normal speech, no facial droop,nogross weakness of arms, no gross weakness of legs. Gross sensation intact. No ataxia. Vital Signs: reviewed and remarkable Differential Diagnosis: CVA, TIA, medication reaction or ADR, psychotic break, electrolyte abnormality, occult infection, as well as others were considered MEDICAL DECISION MAKING: This is a 46-year-old female who presents emergency department due to concern for slurred speech and hallucinations. Patient with significant prior history of strokes, and does use Plavix daily. Patient was afebrile and hemodynamically stable on arrival. She had a normal and nonfocal neuro exam. Due to extensive prior history, labs drawn and sent, IV established, patient sent for CT/CTA. EKG performed and interpreted by me. Patient monitored on telemetry as a precaution. Acute findings were noted on CT/CTA imaging. All results were discussed with the patient at bedside. We discussed the need for additional inpatient evaluation and treatment due to her history as well as these new findings. Patient verbalized understanding of this and was in agreement with the plan. No ectopy or dysrhythmia noted on telemetry. She was hemodynamically stable throughout. No evidence for occult infectious etiology. EtOH negative. UDS pending at time of discussion with hospitalist. Consultation(s): 1305: Discussed with Dr. Eastman. ER Treatment Provided: See below Diagnostics Interpreted By Me: -ECG: Normal sinus at 88, normal axis, normal QRS and QTc, no acute ST/T wave changes, low voltage noted -Cardiac Monitoring: An order was placed for continuous cardiac monitoring. The monitor shows a rate of 86 with normal sinus rhythm. -Laboratory studies: As stated above and show below. -Imaging studies: [] Triage Nursing Note Reviewed Prior/Outside Records Reviewed -prior discharge summary Procedures: [] Critical Care: [] Past Med/Surg History Medical History Ischemic cerebrovascular accident (CVA) Vaginal Pap smear with ASC-US Varicella Surgical History H/O hernia repair Status post pyloromyotomy, follow-up exam Family History Aunt Breast cancer Father Diabetes Hypertension Mother Heart disease Grandmother (Maternal) Osteoporosis Social History Smoking Status: Former smoker Tobacco Type: Cigarettes Second Hand Exposure: No; Do You Dip or Chew Tobacco: No; Hx Alcohol Use: Yes Alcohol type: wine Hx Substance Use: No Preferred Language: Trinidadian Communication Ability: Effective Lemon Picker Required: No Beliefs That Will Affect Care: None Current Living Situation: Alone Other Information That Helps Us Care for You: No Feels Safe at Home: Yes Safety Concerns: Feels Safe At This Time Assistive Devices: None Allergies Allergies Allergy/AdvReac Type Severity Reaction Status Date / Time ethinyl estradiol Allergy Unknown neuro Verified 12/22/21 09:21 [From Ortho Tri-Cyclen (28)] complications norgestimate Allergy Unknown neuro Verified 12/22/21 09:21 [From Ortho Tri-Cyclen (28)] complications Penicillins Allergy Unknown unkn Verified 12/22/21 09:21 bee venom protein (honey bee) AdvReac Unknown SWELLING Verified 12/22/21 09:21 Home Meds Home Medications Medication Instructions Recorded Confirmed losartan 25 mg tablet 25 mg PO DAILY 10/17/18 04/08/22 bupropion HCl 300 mg 24 hr tablet, 300 mg PO DAILY 04/23/21 04/08/22 extended release gabapentin 400 mg capsule 400 mg PO TID 04/23/21 04/08/22 Tylenol Extended Release 1,000 mg PO Q6H PRN pain or fever 04/08/22 04/08/22 atorvastatin 40 mg tablet 40 mg PO DAILY 04/08/22 04/08/22 ergocalciferol (vitamin D2) 1,000 1,000 unit PO DAILY 04/08/22 04/08/22 unit capsule sertraline 100 mg tablet 100 mg PO DAILY 04/08/22 04/08/22 trazodone 100 mg tablet 100 mg PO HS PRN Insomnia 04/08/22 04/08/22 Previous Rx's Medication Instructions Recorded clopidogrel 75 mg tablet 75 mg PO DAILY #30 tabs 04/25/21 Results & Data (ED) Vital Signs Vital Signs - 24 hr 04/08/22 09:12 04/08/22 09:53 04/08/22 12:14 Temperature 36.0 C L Temperature Source Temporal Artery Scan Pulse Rate 90 Pulse Rate [Right Finger] 86 88 Respiratory Rate 20 20 20 Respiratory Effort / Characteristics Non-Labored Spontaneous Non-Labored Non-Labored Respiratory Depth Normal Normal Normal Blood Pressure 115/70 Blood Pressure [Right Arm] 127/94 108/70 Blood Pressure Mean 85 Blood Pressure Mean [Right Arm] 105 82 Pulse Oximetry 98 99 99 Oxygen Delivery Method Room Air Room Air Room Air Sepsis New/Unexplained Change in Mental Status N/A Sepsis Action Taken by Nursing No Action Required Laboratory Data 04/08/22 10:08 04/08/22 10:08 Lab Results 04/08/22 04/08/22 04/08/22 Range/Units 10:08 10:08 10:08 WBC 6.61 (4.8-10.8) K/ul RBC 4.26 (4.20-5.40) M/uL Hgb 13.3 (12.0-16.0) g/dl Hct 39.1 (37.0-47.0) % MCV 91.8 (80.0-100.0) fL MCH 31.2 (25.0-34.0) pg MCHC 34.0 (32.0-36.0) g/dL RDW Std Deviation 42.4 (36.4-46.3) fL RDW Coeff of Joslyn 12.6 (11.5-14.5) % Plt Count 293 (130-400) K/uL MPV 8.9 L (9.4-12.4) fL Immature Gran % (Auto) 0.3 % Neut % (Auto) 77.0 % Lymph % (Auto) 13.9 % [place] % (Auto) 7.4 % Eos % (Auto) 0.5 % Baso % (Auto) 0.9 % Neut # (Auto) 5.09 (1.40-6.50) K/uL Lymph # (Auto) 0.92 L (1.2-3.4) K/uL [place] # (Auto) 0.49 (0.11-0.59) K/uL Eos # (Auto) 0.03 (0-0.50) K/uL Baso # (Auto) 0.06 (0-0.2) K/uL Immature Gran # (Auto) 0.02 (0.01-0.20) K/uL PT 11.2 (9.0-12.0) Seconds INR 1.1 (0.9-1.1) Sodium 139 (136-145) mmol/L Potassium 4.1 (3.5-5.1) mmol/L Chloride 102 (98-107) mmol/L Carbon Dioxide 30 (21-32) mmol/L Anion Gap 7 (3-11) BUN 15 (6-23) mg/dl Creatinine 1.05 (0.6-1.2) mg/dl Est Cr Clr Drug Dosing 60.2 ml/min Est GFR ( Amer) 73.8 ml/min Est GFR (Non-Af Amer) 63.6 ml/min BUN/Creatinine Ratio 14.3 (10-20) Glucose 70 (70-99(Fasting)) mg/dl POC Glucose (70-99) mg/dl Calcium 9.5 (8.5-10.1) mg/dl Magnesium 2.2 (1.7-2.4) mg/dl Total Bilirubin 0.5 (0.2-1.0) mg/dl AST 17 (13-39) U/L ALT 13 (7-52) U/L Alkaline Phosphatase 74 (34-104) U/L Troponin I High Sens < 2.3 (0-14) pg/ml Total Protein 7.3 (6.0-8.3) gm/dl Albumin 4.5 (3.4-5.0) gm/dl Globulin 2.8 (2.5-4.0) gm/dl Albumin/Globulin Ratio 1.6 (0.9-2) Urine Color Urine Appearance (Clear) Urine pH (4.5-7.5) Ur Specific [place] (1.000-1.030) Urine Protein (Negative) Urine Glucose (UA) (Negative) Urine Ketones (Negative) Urine Blood (Negative) Urine Nitrite (Negative) Urine Bilirubin (Negative) Urine Urobilinogen (Negative) Ur Leukocyte Esterase (Negative) Urine WBC (Auto) (0-5) /hpf Urine RBC (Auto) (0-4) /hpf U Hyaline Cast (Auto) (0-5) /lpf U Epithel Cells (Auto) (0-5) /lpf Urine Bacteria (Auto) (Negative) POC Ur Test (NEG) Urine Opiates Screen (Neg) Ur Methadone, Qual (Neg) Urine Barbiturates (Neg) Ur Phencyclidine (PCP) (Neg) U Amphetamin/Meth Scrn (Neg) MDMA (Ecstasy) Screen (Neg) U Benzodiazepines Scrn (Neg) Ur Cocaine Metabolite (Neg) U Marijuana (THC) Screen (Neg) Ethyl Alcohol mg/dL (<10.0) mg/dl Adenovirus (PCR) (NotDetected) B. pertussis DNA (PCR) (NotDetected) B.parapertussis DNA PCR (NotDetected) C. pneumoniae DNA (PCR) (NotDetected) Coronavirus OC43 (PCR) (NotDetected) Coronavirus HKU1 (PCR) (NotDetected) Coronavirus 229E (PCR) (NotDetected) SARS-CoV-2 (PCR) (NotDetected) Coronavirus NL63 (PCR) (NotDetected) Human Metapneumovir PCR (NotDetected) Influenza Type A (PCR) (NotDetected) Influenza Type B (PCR) (NotDetected) M. pneumoniae (PCR) (NotDetected) Parainfluenza 1 (PCR) (NotDetected) Parainfluenza 2 (PCR) (NotDetected) Parainfluenza 3 (PCR) (NotDetected) Parainfluenza 4 (PCR) (NotDetected) RSV (PCR) (NotDetected) Entero/Rhino (PCR) (NotDetected) 04/08/22 04/08/22 04/08/22 Range/Units 10:08 10:08 10:12 WBC (4.8-10.8) K/ul RBC (4.20-5.40) M/uL Hgb (12.0-16.0) g/dl Hct (37.0-47.0) % MCV (80.0-100.0) fL MCH (25.0-34.0) pg MCHC (32.0-36.0) g/dL RDW Std Deviation (36.4-46.3) fL RDW Coeff of Joslyn (11.5-14.5) % Plt Count (130-400) K/uL MPV (9.4-12.4) fL Immature Gran % (Auto) % Neut % (Auto) % Lymph % (Auto) % [place] % (Auto) % Eos % (Auto) % Baso % (Auto) % Neut # (Auto) (1.40-6.50) K/uL Lymph # (Auto) (1.2-3.4) K/uL [place] # (Auto) (0.11-0.59) K/uL Eos # (Auto) (0-0.50) K/uL Baso # (Auto) (0-0.2) K/uL Immature Gran # (Auto) (0.01-0.20) K/uL PT (9.0-12.0) Seconds INR (0.9-1.1) Sodium (136-145) mmol/L Potassium (3.5-5.1) mmol/L Chloride (98-107) mmol/L Carbon Dioxide (21-32) mmol/L Anion Gap (3-11) BUN (6-23) mg/dl Creatinine (0.6-1.2) mg/dl Est Cr Clr Drug Dosing ml/min Est GFR ( Amer) ml/min Est GFR (Non-Af Amer) ml/min BUN/Creatinine Ratio (10-20) Glucose (70-99(Fasting)) mg/dl POC Glucose 71 (70-99) mg/dl Calcium (8.5-10.1) mg/dl Magnesium (1.7-2.4) mg/dl Total Bilirubin (0.2-1.0) mg/dl AST (13-39) U/L ALT (7-52) U/L Alkaline Phosphatase (34-104) U/L Troponin I High Sens (0-14) pg/ml Total Protein (6.0-8.3) gm/dl Albumin (3.4-5.0) gm/dl Globulin (2.5-4.0) gm/dl Albumin/Globulin Ratio (0.9-2) Urine Color Urine Appearance (Clear) Urine pH (4.5-7.5) Ur Specific [place] (1.000-1.030) Urine Protein (Negative) Urine Glucose (UA) (Negative) Urine Ketones (Negative) Urine Blood (Negative) Urine Nitrite (Negative) Urine Bilirubin (Negative) Urine Urobilinogen (Negative) Ur Leukocyte Esterase (Negative) Urine WBC (Auto) (0-5) /hpf Urine RBC (Auto) (0-4) /hpf U Hyaline Cast (Auto) (0-5) /lpf U Epithel Cells (Auto) (0-5) /lpf Urine Bacteria (Auto) (Negative) POC Ur Test (NEG) Urine Opiates Screen (Neg) Ur Methadone, Qual (Neg) Urine Barbiturates (Neg) Ur Phencyclidine (PCP) (Neg) U Amphetamin/Meth Scrn (Neg) MDMA (Ecstasy) Screen (Neg) U Benzodiazepines Scrn (Neg) Ur Cocaine Metabolite (Neg) U Marijuana (THC) Screen (Neg) Ethyl Alcohol mg/dL < 10.0 (<10.0) mg/dl Adenovirus (PCR) Not Detected (NotDetected) B. pertussis DNA (PCR) Not Detected (NotDetected) B.parapertussis DNA PCR Not Detected (NotDetected) C. pneumoniae DNA (PCR) Not Detected (NotDetected) Coronavirus OC43 (PCR) Not Detected (NotDetected) Coronavirus HKU1 (PCR) Not Detected (NotDetected) Coronavirus 229E (PCR) Not Detected (NotDetected) SARS-CoV-2 (PCR) Not Detected (NotDetected) Coronavirus NL63 (PCR) Not Detected (NotDetected) Human Metapneumovir PCR Not Detected (NotDetected) Influenza Type A (PCR) Not Detected (NotDetected) Influenza Type B (PCR) Not Detected (NotDetected) M. pneumoniae (PCR) Not Detected (NotDetected) Parainfluenza 1 (PCR) Not Detected (NotDetected) Parainfluenza 2 (PCR) Not Detected (NotDetected) Parainfluenza 3 (PCR) Not Detected (NotDetected) Parainfluenza 4 (PCR) Not Detected (NotDetected) RSV (PCR) Not Detected (NotDetected) Entero/Rhino (PCR) Not Detected (NotDetected) 04/08/22 04/08/22 04/08/22 Range/Units 12:45 12:45 12:45 WBC (4.8-10.8) K/ul RBC (4.20-5.40) M/uL Hgb (12.0-16.0) g/dl Hct (37.0-47.0) % MCV (80.0-100.0) fL MCH (25.0-34.0) pg MCHC (32.0-36.0) g/dL RDW Std Deviation (36.4-46.3) fL RDW Coeff of Joslyn (11.5-14.5) % Plt Count (130-400) K/uL MPV (9.4-12.4) fL Immature Gran % (Auto) % Neut % (Auto) % Lymph % (Auto) % [place] % (Auto) % Eos % (Auto) % Baso % (Auto) % Neut # (Auto) (1.40-6.50) K/uL Lymph # (Auto) (1.2-3.4) K/uL [place] # (Auto) (0.11-0.59) K/uL Eos # (Auto) (0-0.50) K/uL Baso # (Auto) (0-0.2) K/uL Immature Gran # (Auto) (0.01-0.20) K/uL PT (9.0-12.0) Seconds INR (0.9-1.1) Sodium (136-145) mmol/L Potassium (3.5-5.1) mmol/L Chloride (98-107) mmol/L Carbon Dioxide (21-32) mmol/L Anion Gap (3-11) BUN (6-23) mg/dl Creatinine (0.6-1.2) mg/dl Est Cr Clr Drug Dosing ml/min Est GFR ( Amer) ml/min Est GFR (Non-Af Amer) ml/min BUN/Creatinine Ratio (10-20) Glucose (70-99(Fasting)) mg/dl POC Glucose (70-99) mg/dl Calcium (8.5-10.1) mg/dl Magnesium (1.7-2.4) mg/dl Total Bilirubin (0.2-1.0) mg/dl AST (13-39) U/L ALT (7-52) U/L Alkaline Phosphatase (34-104) U/L Troponin I High Sens (0-14) pg/ml Total Protein (6.0-8.3) gm/dl Albumin (3.4-5.0) gm/dl Globulin (2.5-4.0) gm/dl Albumin/Globulin Ratio (0.9-2) Urine Color Yellow Urine Appearance Clear (Clear) Urine pH 7.5 (4.5-7.5) Ur Specific [place] > 1.045 H (1.000-1.030) Urine Protein Negative (Negative) Urine Glucose (UA) Negative (Negative) Urine Ketones 2+ H (Negative) Urine Blood Negative (Negative) Urine Nitrite Positive A (Negative) Urine Bilirubin Negative (Negative) Urine Urobilinogen Negative (Negative) Ur Leukocyte Esterase Trace H (Negative) Urine WBC (Auto) 10-30 H (0-5) /hpf Urine RBC (Auto) 0-4 (0-4) /hpf U Hyaline Cast (Auto) 1-5 (0-5) /lpf U Epithel Cells (Auto) >30 H (0-5) /lpf Urine Bacteria (Auto) 4+ H (Negative) POC Ur Test NEG (NEG) Urine Opiates Screen Neg (Neg) Ur Methadone, Qual Neg (Neg) Urine Barbiturates Neg (Neg) Ur Phencyclidine (PCP) Neg (Neg) U Amphetamin/Meth Scrn Neg (Neg) MDMA (Ecstasy) Screen Pos H (Neg) U Benzodiazepines Scrn Neg (Neg) Ur Cocaine Metabolite Neg (Neg) U Marijuana (THC) Screen Neg (Neg) Ethyl Alcohol mg/dL (<10.0) mg/dl Adenovirus (PCR) (NotDetected) B. pertussis DNA (PCR) (NotDetected) B.parapertussis DNA PCR (NotDetected) C. pneumoniae DNA (PCR) (NotDetected) Coronavirus OC43 (PCR) (NotDetected) Coronavirus HKU1 (PCR) (NotDetected) Coronavirus 229E (PCR) (NotDetected) SARS-CoV-2 (PCR) (NotDetected) Coronavirus NL63 (PCR) (NotDetected) Human Metapneumovir PCR (NotDetected) Influenza Type A (PCR) (NotDetected) Influenza Type B (PCR) (NotDetected) M. pneumoniae (PCR) (NotDetected) Parainfluenza 1 (PCR) (NotDetected) Parainfluenza 2 (PCR) (NotDetected) Parainfluenza 3 (PCR) (NotDetected) Parainfluenza 4 (PCR) (NotDetected) RSV (PCR) (NotDetected) Entero/Rhino (PCR) (NotDetected) Administered Medications Discontinued Medications Ceftriaxone Sodium (Rocephin) 2,000 mg in 70 mls @ 140 mls/hr IV NOW STA Stop: 04/08/22 13:36 Last Infusion: 04/08/22 14:54 Dose: 0 mls/hr Documented By: Admin: 04/08/22 14:22 Dose: 140 mls/hr Documented By: JOSUE Ioversol (Optiray 320 500ml) 115 ml IV ONCE ONE Stop: 04/08/22 11:20 Last Admin: 04/08/22 11:20 Dose: 115 ml Documented By: KILLIAN Imaging Data Radiologist's Impression: Head CT 04/08/22 09:[address] DOSE: HISTORY: neuro deficit, acute stroke suspected TECHNIQUE: Multiaxial CT images of the head were performed without the use of intravenous contrast. Automated exposure control was utilized for this study. A dose lowering technique was utilized adhering to the principles of ALARA. Comparison: Head CT 04/24/2021. Findings: The paranasal sinuses and mastoid air cells are clear. Old left MCA territory infarct again noted with associated encephalomalacia. There are old punctate lacunar infarcts within the left cerebellar hemisphere, unchanged. No mass, hematoma, midline shift, acute infarct identified. The ventricles are stable in size. Wallerian degeneration again noted within the left cerebral peduncle. Impression: No significant change compared to the prior study. No acute intracranial abnormality. Old infarcts as described above. ACT 112: Negative or not required by law. Electronically signed by: Christopher La M.D. 04/08/2022 11:50 AM Head CTA 04/08/22 09:50 HEAD & NECK CTA HISTORY: Slurred speech. neuro deficit, acute stroke suspected TECHNIQUE: Multiaxial CT images of the head were performed following the the intravenous administration of contrast to evaluate the major cerebral vessels. Multiaxial CT images of the neck were also performed following the intravenous administration of contrast to evaluate the major cervical vessels. Maximum intensity projection images were also obtained. A dose lowering technique was utilized adhering to the principles of ALARA. COMPARISON: Head and neck CTA 04/23/2021. FINDINGS: The major dural venous sinuses are patent. Visualized intracranial internal carotid arteries, distal vertebral arteries, and basilar artery are widely roberts nt. There is no significant stenosis, occlusion, or aneurysm seen within the bilateral ACAs, right MCA, or hvac service technician. Slightly attenuated left MCA branches in comparison to the right. This is likely due to the chronic encephalomalacia seen within the left MCA territory consistent with an old infarct. There is also a focal area of occlusion within the superior division of the left M2 segment best seen image 139. This is new from the prior study and could represent a site of acute on chronic left MCA infarct. The aortic arch and proximal great vessels are widely patent. There is no significant stenosis, occlusion, or dissection identified within the bilateral common carotid, internal carotid, or vertebral arteries. Mild partially calcified plaque within the left carotid bulb. IMPRESSION: 1. There is also a focal area of occlusion within the superior division of the left M2 segment. This is new from the prior study and could represent a site of acute on chronic left MCA infarct. 2. Attenuated left MCA branches likely corresponding to the old left MCA territory infarct. 3. No significant stenosis, occlusion, or dissection identified within the carotid or vertebral arteries. ACT 112: Negative or not required by law. Electronically signed by: Christopher La M.D. 04/08/2022 11:56 AM Neck CTA 04/08/22 09:50 HEAD & NECK CTA HISTORY: Slurred speech. neuro deficit, acute stroke suspected TECHNIQUE: Multiaxial CT images of the head were performed following the the intravenous administration of contrast to evaluate the major cerebral vessels. Multiaxial CT images of the neck were also performed following the intravenous administration of contrast to evaluate the major cervical vessels. Maximum intensity projection images were also obtained. A dose lowering technique was utilized adhering to the principles of ALARA. COMPARISON: Head and neck CTA 04/23/2021. FINDINGS: The major dural venous sinuses are patent. Visualized intracranial internal carotid arteries, distal vertebral arteries, and basilar artery are widely patent. There is no significant stenosis, occlusion, or aneurysm seen within the bilateral ACAs, right MCA, or hvac service technician. Slightly attenuated left MCA branches in comparison to the right. This is likely due to the chronic encephalomalacia seen within the left MCA territory consistent with an old infarct. There is also a focal area of occlusion within the superior division of the left M2 segment best seen image 139. This is new from the prior study and could represent a site of acute on chronic left MCA infarct. The aortic arch and proximal great vessels are widely patent. There is no significant stenosis, occlusion, or dissection identified within the bilateral common carotid, internal carotid, or vertebral arteries. Mild partially calcified plaque within the left carotid bulb. IMPRESSION: 1. There is also a focal area of occlusion within the superior division of the left M2 segment. This is new from the prior study and could represent a site of acute on chronic left MCA infarct. 2. Attenuated left MCA branches likely corresponding to the old left MCA territory infarct. 3. No significant stenosis, occlusion, or dissection identified within the carotid or vertebral arteries. ACT 112: Negative or not required by law. Electronically signed by: Christopher La M.D. 04/08/2022 11:56 AM Discharge Plan Visit Data Chief Complaint: Neuro Symptoms/Deficit Stated Complaint: SLURRED SPEECH, VIVID HALLUCINATIONS, LOSS BALANCE ED Provider: Claudia Sloan Discharge Problem: Dysarthria, Weakness, Hallucinations Patient Disposition: Admitted As Inpatient Discharge Instructions Interventions: ED Discharge Assessment Last Done: 04/08/22 15:16
[2022-04-08 10:53] LABS: Basophils # (auto) 0.06 K/uL (0-0.2); Basophils % (auto) 0.9 %; Eosinophils # (auto) 0.03 K/uL (0-0.50); Eosinophils % (auto) 0.5 %; Hematocrit (blood only) 39.1 % (37.0-47.0); Hemoglobin 13.3 g/dl (12.0-16.0); Immature Granulocytes # (auto) 0.02 K/uL (0.01-0.20); Immature Granulocytes % (auto) 0.3 %; Lymphocytes # (auto) 0.92 K/uL (1.2-3.4); Lymphocytes % (auto) 13.9 %; Mean Corpuscular Hemoglobin 31.2 pg (25.0-34.0); Mean Corpuscular Volume 91.8 fL (80.0-100.0); Mean Platelet Volume 8.9 fL (9.4-12.4); Monocytes # (auto) 0.49 K/uL (0.11-0.59); Monocytes % (auto) 7.4 %; Neutrophils # (auto) 5.09 K/uL (1.40-6.50); Platelet Count 293 K/uL (130-400); RDW Coefficient of Variation 12.6 % (11.5-14.5); RDW Standard Deviation 42.4 fL (36.4-46.3); Red Blood Count 4.26 M/uL (4.20-5.40); White Blood Count 6.61 K/ul (4.8-10.8)
[2022-04-08 10:56] LABS: Alanine Aminotransferase 13 U/L (7-52); Albumin Globulin Ratio 1.6 (0.9-2); Albumin Level 4.5 gm/dl (3.4-5.0); Alkaline Phosphatase 74 U/L (34-104); Anion Gap 7 (3-11); Aspartate Aminotransferase 17 U/L (13-39); BUN Creatinine Ratio 14.3 (10-20); Bilirubin,Total 0.5 mg/dl (0.2-1.0); Blood Urea Nitrogen 15 mg/dl (6-23); Calcium 9.5 mg/dl (8.5-10.1); Carbon Dioxide 30 mmol/L (21-32); Chloride 102 mmol/L (98-107); Creatinine Clr Calc Pharmacy 60.2 ml/min; Est GFR (African American) 73.8 ml/min; Est GFR (Non-African American) 63.6 ml/min; Globulin 2.8 gm/dl (2.5-4.0); Glucose 70 mg/dl (70-99(Fasting)); Magnesium 2.2 mg/dl (1.7-2.4); Potassium 4.1 mmol/L (3.5-5.1); Sodium 139 mmol/L (136-145); Total Protein 7.3 gm/dl (6.0-8.3)
[2022-04-08 11:01] LABS: Troponin I High Sensitivity < 2.3 pg/ml (0-14)
[2022-04-08 11:04] LABS: INR 1.1 (0.9-1.1); Prothrombin Time 11.2 Seconds (9.0-12.0)
[2022-04-08] MEDS ORDERED: OPTIRAY 320 500ml IV ONE (11:19)
[2022-04-08 11:43] LABS: Adenovirus PCR Not Detected (NotDetected); Bordetella parapertussis PCR Not Detected (NotDetected); Bordetella pertussis PCR Not Detected (NotDetected); Chlamydia pneumoniae PCR Not Detected (NotDetected); Coronavirus 229E PCR Not Detected (NotDetected); Coronavirus CoV-2 (COVID19)PCR Not Detected (NotDetected); Coronavirus HKU1 PCR Not Detected (NotDetected); Coronavirus NL63 PCR Not Detected (NotDetected); Coronavirus OC43PCR Not Detected (NotDetected); Human Metapneumovirus PCR Not Detected (NotDetected); Influenza A PCR Not Detected (NotDetected); Influenza B PCR Not Detected (NotDetected); Mycoplasma pneumoniae PCR Not Detected (NotDetected); Parainfluenza Virus 1 PCR Not Detected (NotDetected); Parainfluenza Virus 2 PCR Not Detected (NotDetected); Parainfluenza Virus 3 PCR Not Detected (NotDetected); Parainfluenza Virus 4 PCR Not Detected (NotDetected); Respiratory Syncytial VirusPCR Not Detected (NotDetected); Rhinovirus/Enterovirus PCR Not Detected (NotDetected)
--- NOTE | 2022-04-08 11:52 | CT Scan Report ---
HEAD CT NONCONTRAST CT DOSE: HISTORY: neuro deficit, acute stroke suspected TECHNIQUE: Multiaxial CT images of the head were performed without the use of intravenous contrast. A utomated exposure control was utilized for this study. A dose lowering technique was utilized adheri ng to the principles of ALARA. Comparison: Head CT 04/24/2021. Findings: The paranasal sinuses and mastoid air cells are clear. Old left MCA territory infarct again noted with associated encephalomalacia. There are old punctate lacunar infarcts within the left cere bellar hemisphere, unchanged. No mass, hematoma, midline shift, acute infarct identified. The ventric les are stable in size. Wallerian degeneration again noted within the left cerebral peduncle. Impression: No significant change compared to the prior study. No acute intracranial abnormality. Old infarcts as described above. ACT 112: Negative or not required by law. Electronically signed by: Christopher La M.D. 04/08/2022 11:50 AM
--- NOTE | 2022-04-08 11:58 | CT Scan Report ---
HEAD & NECK CTA HISTORY: Slurred speech. neuro deficit, acute stroke suspected TECHNIQUE: Multiaxial CT images of the head were performed following the the intravenous administrati on of contrast to evaluate the major cerebral vessels. Multiaxial CT images of the neck were also per formed following the intravenous administration of contrast to evaluate the major cervical vessels. M aximum intensity projection images were also obtained. A dose lowering technique was utilized adherin g to the principles of ALARA. COMPARISON: Head and neck CTA 04/23/2021. FINDINGS: The major dural venous sinuses are patent. Visualized intracranial internal carotid arteries, distal vertebral arteries, and basilar artery are widely patent. There is no significant stenosis, occlusion , or aneurysm seen within the bilateral ACAs, right MCA, or [place] operator. Slightly attenuated left MCA branch es in comparison to the right. This is likely due to the chronic encephalomalacia seen within the lef t MCA territory consistent with an old infarct. There is also a focal area of occlusion within the renteria perior division of the left M2 segment best seen image 139. This is new from the prior study and coul d represent a site of acute on chronic left MCA infarct. The aortic arch and proximal great vessels are widely patent. There is no significant stenosis, occ lusion, or dissection identified within the bilateral common carotid, internal carotid, or vertebral arteries. Mild partially calcified plaque within the left carotid bulb. IMPRESSION: 1. There is also a focal area of occlusion within the superior division of the left M2 segment. This is new from the prior study and could represent a site of acute on chronic left MCA infarct. 2. Attenuated left MCA branches likely corresponding to the old left MCA territory infarct. 3. No significant stenosis, occlusion, or dissection identified within the carotid or vertebral arter ies. ACT 112: Negative or not required by law. Electronically signed by: Christopher La M.D. 04/08/2022 11:56 AM
[2022-04-08 12:58] LABS: Appearance Urine Clear (Clear); Bacteria Urine Automated 4+ (Negative); Bilirubin Urine Negative (Negative); Blood Urine Negative (Negative); Color Urine Yellow; Epithelial Cell Urine Auto >30 /lpf (0-5); Glucose Urine UA Negative (Negative); Ketones Urine 2+ (Negative); Leukocyte Esterase Urine Trace (Negative); Nitrite Urine Positive (Negative); Protein Urine Negative (Negative); RBC Urine Automated 0-4 /hpf (0-4); Specific Gravity Urine > 1.045 (1.000-1.030); Urobilinogen Urine Negative (Negative); pH Urine 7.5 (4.5-7.5)
[2022-04-08] MEDS ORDERED: cefTRIAXone SODIUM 2,000 MG/70 ML BAG IV STA (13:07)
[2022-04-08 13:36] LABS: Amphetamines+Metham, Urine Neg (Neg); Barbiturates, Urine Neg (Neg); Benzodiazepine, Urine Neg (Neg); Cocaine, Urine Neg (Neg); MDMA (Ecstacy), Urine Pos (Neg); Methadone, Urine Neg (Neg); Opiate, Urine Neg (Neg); Phencyclidine, Urine Neg (Neg)
--- NOTE | 2022-04-08 14:20 | History & Physical Report ---
Date of Service April 08, 2022 Assessment & Plan (1) Dysarthria: (2) Hallucinations: Plan: 45-year-old female with a history of a left MCA ischemic stroke in 2015 with no residual deficits, TIA in 2021 as well as known PFO, anxiety,hypertension, hy perlipidemia/mood disorder, past tobacco abuse present to the ER with c/o of hallucination and slurred speech. Possible related to anxiety, stress (from the marriage separation ) vs UTI Need to r/o acute CVA due to history of stroke CT head showed no acute intracranial abnormality. CTA head/neck showed focal area of occlusion within the superior division of the left M2 segment. This is new from the prior study and could represent a site of acute on chronic left MCA infarct. Will get MRI brain, resting Echo Leonardo get neuro check Will consult neuro PT/OT/Speech eval Continue Plavix and statin Consider to add aspirin if MRI showed new infarct Continue monitor closely in PCU fall precaution Abnormal UA UA positive for nitrite, Leukocytes and bacteria Received Rocephin in the ER , will continue Follow up urine cx Hypertension BP controlled Will hold Losartan for now Continue monitor BP Anxiety/mood disorder Continue Zoloft and Welbutrin Insomnia Continue trazodone prn Alcohol abuse Denies any history of alcohol withdrawal Continue gabapentin home dose Will monitor closely for DT and alcohol withdrawal sx Will add thiamine and folic acid Counseling on alcohol cessation DVT Px on Lovenox Code Status Full code History of Present Illness Chief Complaint: Hallucination, slurred speech Primary Care Provider: Ghada Irving MD 45-year-old female with a history of a left MCA ischemic stroke in 2016 with no residual deficits, TIA in 2021 as well as known PFO, anxiety,hypertension, hyperlipidemia/mood disorder, past tobacco abuse present to the ER with c/o of hallucination and slurred speech. History obtained from pt and ( but ) at bedside. Pt said yesterday she developed visual hallucination where she saw rats in her house. said she grabbed the dog and went outside to the house. She went to the car to put the dog then noticed black panther under the car; then she started to run back to the house. said she locked the [place] inside the house where she had to break the glass window to unlock the door. She called 911 and the police came. She was having slurred speech and they police asked her if she was drinking and they left. said she called her a 4am. said that she had slurred speech on the phone but by the time he got to the house her slurred speech was on and off and her balance was off. said he cleaned the glass window. He said few hours later pt said that she felt there was a rat crawling on her feet. They called PCP office to try to be seen today, but she could not get an appointment. She went to the urgent care and was sent to the ER. Pt said that she has not been sleeping lately. She has been drinking alcohol on and off and her last drink was on Sunday. She denies any illicit drug. Currently she denies any neurology symptoms. Denies any chest pain, palpitation, dizziness, hallucination, suicidal thought and SOB. Allergies Allergy/AdvReac Type Severity Reaction Status Date / Time ethinyl estradiol Allergy Unknown neuro Verified 12/22/21 09:21 [From Ortho Tri-Cyclen (28)] complications norgestimate Allergy Unknown neuro Verified 12/22/21 09:21 [From Ortho Tri-Cyclen (28)] complications Penicillins Allergy Unknown unkn Verified 12/22/21 09:21 bee venom protein (honey bee) AdvReac Unknown SWELLING Verified 12/22/21 09:21 Home Medications Medication Instructions Recorded Confirmed Type bupropion HCl 300 mg 24 hr tablet, 300 mg PO DAILY 04/23/21 04/08/22 History extended release gabapentin 400 mg capsule 400 mg PO TID 04/23/21 04/08/22 History clopidogrel 75 mg tablet 75 mg PO DAILY #30 tabs 04/25/21 04/08/22 Rx Tylenol Extended Release 1,000 mg PO Q6H PRN pain or fever 04/08/22 04/08/22 History atorvastatin 40 mg tablet 40 mg PO DAILY 04/08/22 04/08/22 History ergocalciferol (vitamin D2) 1,000 1,000 unit PO DAILY 04/08/22 04/08/22 History unit capsule sertraline 100 mg tablet 100 mg PO DAILY 04/08/22 04/08/22 History trazodone 100 mg tablet 100 mg PO HS PRN Insomnia 04/08/22 04/08/22 History Past Med/Surg History Medical History Ischemic cerebrovascular accident (CVA) Vaginal Pap smear with ASC-US Varicella Surgical History H/O hernia repair Status post pyloromyotomy, follow-up exam Family History Aunt Breast cancer Father Diabetes Hypertension Mother Heart disease Grandmother (Maternal) Osteoporosis Social History Smoking Status: Former smoker Tobacco Type: Cigarettes Second Hand Exposure: No; Hx Alcohol Use: Yes Alcohol type: wine Hx Substance Use: No Preferred Language: Bermudian Communication Ability: Effective Assessment Services Manager Required: No Beliefs That Will Affect Care: None Current Living Situation: Alone Feels Safe at Home: Yes Assistive Devices: None Review of Systems Review of Systems: All systems reviewed & are unremarkable except as noted in Subjective Physical Exam Physical Exam: General- No acute distress Head- atraumatic Eyes- PERRL, EOMI, ENT- oropharynx clear Neck- supple, no JVD Lungs- clear to auscultation Heart- regular rhythm; no murmur Abdomen- normal bowel sounds, soft, nontender Extremities- no calf tenderness Neuro- alert, oriented x 3; PERRL, EOMI; no facial palsy; no dysarthria Skin- warm & dry Results & Data Results & Data ([facility]) Vital Signs (Past 12 Hours) Vital Signs Temp Pulse Pulse Resp BP BP Pulse Ox 04/08/22 12:14 88 20 108/70 99 04/08/22 09:53 86 20 127/94 99 04/08/22 09:12 36.0 C L 90 20 115/70 98 O2 Del Method 04/08/22 12:14 Room Air 04/08/22 09:53 Room Air 04/08/22 09:12 Room Air Diagnostic Findings Laboratory Results WBC 6.61 K/ul (4.8-10.8) 04/08/22 10:08 RBC 4.26 M/uL (4.20-5.40) 04/08/22 10:08 Hgb 13.3 g/dl (12.0-16.0) 04/08/22 10:08 Hct 39.1 % (37.0-47.0) 04/08/22 10:08 MCV 91.8 fL (80.0-100.0) 04/08/22 10:08 MCH 31.2 pg (25.0-34.0) 04/08/22 10:08 MCHC 34.0 g/dL (32.0-36.0) 04/08/22 10:08 RDW Std Deviation 42.4 fL (36.4-46.3) 04/08/22 10:08 RDW Coeff of Joslyn 12.6 % (11.5-14.5) 04/08/22 10:08 Plt Count 293 K/uL (130-400) 04/08/22 10:08 MPV 8.9 fL (9.4-12.4) L 04/08/22 10:08 Immature Gran % (Auto) 0.3 % 04/08/22 10:08 Neut % (Auto) 77.0 % 04/08/22 10:08 Lymph % (Auto) 13.9 % 04/08/22 10:08 Lares % (Auto) 7.4 % 04/08/22 10:08 Eos % (Auto) 0.5 % 04/08/22 10:08 Baso % (Auto) 0.9 % 04/08/22 10:08 Neut # (Auto) 5.09 K/uL (1.40-6.50) 04/08/22 10:08 Lymph # (Auto) 0.92 K/uL (1.2-3.4) L 04/08/22 10:08 Lares # (Auto) 0.49 K/uL (0.11-0.59) 04/08/22 10:08 Eos # (Auto) 0.03 K/uL (0-0.50) 04/08/22 10:08 Baso # (Auto) 0.06 K/uL (0-0.2) 04/08/22 10:08 Immature Gran # (Auto) 0.02 K/uL (0.01-0.20) 04/08/22 10:08 PT 11.2 Seconds (9.0-12.0) 04/08/22 10:08 INR 1.1 (0.9-1.1) 04/08/22 10:08 Sodium 139 mmol/L (136-145) 04/08/22 10:08 Potassium 4.1 mmol/L (3.5-5.1) 04/08/22 10:08 Chloride 102 mmol/L (98-107) 04/08/22 10:08 Carbon Dioxide 30 mmol/L (21-32) 04/08/22 10:08 Anion Gap 7 (3-11) 04/08/22 10:08 BUN 15 mg/dl (6-23) 04/08/22 10:08 Creatinine 1.05 mg/dl (0.6-1.2) 04/08/22 10:08 Est Cr Clr Drug Dosing 60.2 ml/min 04/08/22 10:08 Est GFR ( Amer) 73.8 ml/min 04/08/22 10:08 Est GFR (Non-Af Amer) 63.6 ml/min 04/08/22 10:08 BUN/Creatinine Ratio 14.3 (10-20) 04/08/22 10:08 Glucose 70 mg/dl (70-99(Fasting)) 04/08/22 10:08 POC Glucose 71 mg/dl (70-99) 04/08/22 10:12 Calcium 9.5 mg/dl (8.5-10.1) 04/08/22 10:08 Magnesium 2.2 mg/dl (1.7-2.4) 04/08/22 10:08 Total Bilirubin 0.5 mg/dl (0.2-1.0) 04/08/22 10:08 AST 17 U/L (13-39) 04/08/22 10:08 ALT 13 U/L (7-52) 04/08/22 10:08 Alkaline Phosphatase 74 U/L (34-104) 04/08/22 10:08 Troponin I High Sens < 2.3 pg/ml (0-14) 04/08/22 10:08 Total Protein 7.3 gm/dl (6.0-8.3) 04/08/22 10:08 Albumin 4.5 gm/dl (3.4-5.0) 04/08/22 10:08 Globulin 2.8 gm/dl (2.5-4.0) 04/08/22 10:08 Albumin/Globulin Ratio 1.6 (0.9-2) 04/08/22 10:08 Urine Color Yellow 04/08/22 12:45 Urine Appearance Clear (Clear) 04/08/22 12:45 Urine pH 7.5 (4.5-7.5) 04/08/22 12:45 Ur Specific Downey > 1.045 (1.000-1.030) H 04/08/22 12:45 Urine Protein Negative (Negative) 04/08/22 12:45 Urine Glucose (UA) Negative (Negative) 04/08/22 12:45 Urine Ketones 2+ (Negative) H 04/08/22 12:45 Urine Blood Negative (Negative) 04/08/22 12:45 Urine Nitrite Positive (Negative) A 04/08/22 12:45 Urine Bilirubin Negative (Negative) 04/08/22 12:45 Urine Urobilinogen Negative (Negative) 04/08/22 12:45 Ur Leukocyte Esterase Trace (Negative) H 04/08/22 12:45 Urine WBC (Auto) 10-30 /hpf (0-5) H 04/08/22 12:45 Urine RBC (Auto) 0-4 /hpf (0-4) 04/08/22 12:45 U Hyaline Cast (Auto) 1-5 /lpf (0-5) 04/08/22 12:45 U Epithel Cells (Auto) >30 /lpf (0-5) H 04/08/22 12:45 Urine Bacteria (Auto) 4+ (Negative) H 04/08/22 12:45 POC Ur Test NEG (NEG) 04/08/22 12:45 Urine Opiates Screen Neg (Neg) 04/08/22 12:45 Ur Methadone, Qual Neg (Neg) 04/08/22 12:45 Urine Barbiturates Neg (Neg) 04/08/22 12:45 Ur Phencyclidine (PCP) Neg (Neg) 04/08/22 12:45 U Amphetamin/Meth Scrn Neg (Neg) 04/08/22 12:45 MDMA (Ecstasy) Screen Pos (Neg) H 04/08/22 12:45 U Benzodiazepines Scrn Neg (Neg) 04/08/22 12:45 Ur Cocaine Metabolite Neg (Neg) 04/08/22 12:45 U Marijuana (THC) Screen Neg (Neg) 04/08/22 12:45 Ethyl Alcohol mg/dL < 10.0 mg/dl (<10.0) 04/08/22 10:08 Adenovirus (PCR) Not Detected (NotDetected) 04/08/22 10:08 B. pertussis DNA (PCR) Not Detected (NotDetected) 04/08/22 10:08 B.parapertussis DNA PCR Not Detected (NotDetected) 04/08/22 10:08 C. pneumoniae DNA (PCR) Not Detected (NotDetected) 04/08/22 10:08 Coronavirus OC43 (PCR) Not Detected (NotDetected) 04/08/22 10:08 Coronavirus HKU1 (PCR) Not Detected (NotDetected) 04/08/22 10:08 Coronavirus 229E (PCR) Not Detected (NotDetected) 04/08/22 10:08 SARS-CoV-2 (PCR) Not Detected (NotDetected) 04/08/22 10:08 Coronavirus NL63 (PCR) Not Detected (NotDetected) 04/08/22 10:08 Human Metapneumovir PCR Not Detected (NotDetected) 04/08/22 10:08 Influenza Type A (PCR) Not Detected (NotDetected) 04/08/22 10:08 Influenza Type B (PCR) Not Detected (NotDetected) 04/08/22 10:08 M. pneumoniae (PCR) Not Detected (NotDetected) 04/08/22 10:08 Parainfluenza 1 (PCR) Not Detected (NotDetected) 04/08/22 10:08 Parainfluenza 2 (PCR) Not Detected (NotDetected) 04/08/22 10:08 Parainfluenza 3 (PCR) Not Detected (NotDetected) 04/08/22 10:08 Parainfluenza 4 (PCR) Not Detected (NotDetected) 04/08/22 10:08 RSV (PCR) Not Detected (NotDetected) 04/08/22 10:08 Entero/Rhino (PCR) Not Detected (NotDetected) 04/08/22 10:[address] 04/08/22 09:[address] DOSE: HISTORY: neuro deficit, acute stroke suspected TECHNIQUE: Multiaxial CT images of the head were performed without the use of intravenous contrast. Automated exposure control was utilized for this study. A dose lowering technique was utilized adhering to the principles of ALARA. Comparison: Head CT 04/24/2021. Findings: The paranasal sinuses and mastoid air cells are clear. Old left MCA territory infarct again noted with associated encephalomalacia. There are old punctate lacunar infarcts within the left cerebellar hemisphere, unchanged. No mass, hematoma, midline shift, acute infarct identified. The ventricles are stable in size. Wallerian degeneration again noted within the left cerebral peduncle. Impression: No significant change compared to the prior study. No acute intracranial abnormality. Old infarcts as described above. ACT 112: Negative or not required by law. Electronically signed by: Christopher La M.D. 04/08/2022 11:50 AM Head CTA 04/08/22 09:50 HEAD & NECK CTA HISTORY: Slurred speech. neuro deficit, acute stroke suspected TECHNIQUE: Multiaxial CT images of the head were performed following the the intravenous administration of contrast to evaluate the major cerebral vessels. Multiaxial CT images of the neck were also performed following the intravenous administration of contrast to evaluate the major cervical vessels. Maximum intensity projection images were also obtained. A dose lowering technique was utilized adhering to the principles of ALARA. COMPARISON: Head and neck CTA 04/23/2021. FINDINGS: The major dural venous sinuses are patent. Visualized intracranial internal carotid arteries, distal vertebral arteries, and basilar artery are widely patent. There is no significant stenosis, occlusion, or aneurysm seen within the bilateral ACAs, right MCA, or car salesperson. Slightly attenuated left MCA branches in comparison to the right. This is likely due to the chronic encephalomalacia seen within the left MCA territory consistent with an old infarct. There is also a focal area of occlusion within the superior division of the left M2 segment best seen image 139. This is new from the prior study and could represent a site of acute on chronic left MCA infarct. The aortic arch and proximal great vessels are widely patent. There is no significant stenosis, occlusion, or dissection identified within the bilateral common carotid, internal carotid, or vertebral arteries. Mild partially calcified plaque within the left carotid bulb. IMPRESSION: 1. There is also a focal area of occlusion within the superior division of the left M2 segment. This is new from the prior study and could represent a site of acute on chronic left MCA infarct. 2. Attenuated left MCA branches likely corresponding to the old left MCA territory infarct. 3. No significant stenosis, occlusion, or dissection identified within the carotid or vertebral arteries. ACT 112: Negative or not required by law. Electronically signed by: Christopher La M.D. 04/08/2022 11:56 AM Neck CTA 04/08/22 09:50 HEAD & NECK CTA HISTORY: Slurred speech. neuro deficit, acute stroke suspected TECHNIQUE: Multiaxial CT images of the head were performed following the the intravenous administration of contrast to evaluate the major cerebral vessels. Multiaxial CT images of the neck were also performed following the intravenous administration of contrast to evaluate the major cervical vessels. Maximum intensity projection images were also obtained. A dose lowering technique was utilized adhering to the principles of ALARA. COMPARISON: Head and neck CTA 04/23/2021. FINDINGS: The major dural venous sinuses are patent. Visualized intracranial internal carotid arteries, distal vertebral arteries, and basilar artery are widely patent. There is no significant stenosis, occlusion, or aneurysm seen within the bilateral ACAs, right MCA, or car salesperson. Slightly attenuated left MCA branches in comparison to the right. This is likely due to the chronic encephalomalacia seen within the left MCA territory consistent with an old infarct. There is also a focal area of occlusion within the superior division of the left M2 segment best seen image 139. This is new from the prior study and could represent a site of acute on chronic left MCA infarct. The aortic arch and proximal great vessels are widely patent. There is no significant stenosis, occlusion, or dissection identified within the bilateral common carotid, internal carotid, or vertebral arteries. Mild partially calcified plaque within the left carotid bulb.
[2022-04-08] MEDS ORDERED: PHARMACIST DISCHARGE MED REC CONSULT PRN (15:36)
[2022-04-08] MEDS ORDERED: FLUARIX QUADRIVALENT 0.5 ML SYR IM ONE (15:51)
[2022-04-08] MEDS: GABAPENTIN 400 MG CAP PO SCH (21:17)
[2022-04-09] MEDS ORDERED: traZODone HCL 100 MG TAB PO PRN (00:12)
[2022-04-09 08:08] LABS: Basophils # (auto) 0.06 K/uL (0-0.2); Basophils % (auto) 0.9 %; Eosinophils # (auto) 0.06 K/uL (0-0.50); Eosinophils % (auto) 0.9 %; Hematocrit (blood only) 39.5 % (37.0-47.0); Hemoglobin 13.3 g/dl (12.0-16.0); Immature Granulocytes # (auto) 0.02 K/uL (0.01-0.20); Immature Granulocytes % (auto) 0.3 %; Lymphocytes # (auto) 0.99 K/uL (1.2-3.4); Lymphocytes % (auto) 15.3 %; Mean Corpuscular Hemoglobin 31.1 pg (25.0-34.0); Mean Corpuscular Hgb Conc 33.7 g/dL (32.0-36.0); Mean Corpuscular Volume 92.5 fL (80.0-100.0); Mean Platelet Volume 8.7 fL (9.4-12.4); Monocytes # (auto) 0.55 K/uL (0.11-0.59); Monocytes % (auto) 8.5 %; Neutrophils % (auto) 74.1 %; Platelet Count 274 K/uL (130-400); RDW Coefficient of Variation 12.2 % (11.5-14.5); RDW Standard Deviation 41.8 fL (36.4-46.3); Red Blood Count 4.27 M/uL (4.20-5.40); White Blood Count 6.48 K/ul (4.8-10.8)
[2022-04-09] MEDS: GABAPENTIN 400 MG CAP PO SCH ×2 (08:09→15:05)
[2022-04-09 08:48] LABS: BUN Creatinine Ratio 17.2 (10-20); Calcium 8.7 mg/dl (8.5-10.1); Chol HDL Ratio 1.6 (0-5); Creatinine Clr Calc Pharmacy 72.6 ml/min; Est GFR (African American) 92.6 ml/min; Est GFR (Non-African American) 79.9 ml/min; Potassium 3.9 mmol/L (3.5-5.1)
[2022-04-09] MEDS ORDERED: buPROPion XL 300 MG TABCR PO SCH (09:00)
[2022-04-09] MEDS ORDERED: CHOLECALCIFEROL 1,000 UNITS 25 MCG TAB PO SCH (09:00)
[2022-04-09] MEDS ORDERED: ATORVASTATIN 40 MG TAB PO SCH (09:00)
[2022-04-09] MEDS ORDERED: CLOPIDOGREL BISULFATE 75 MG TAB PO SCH (09:00)
[2022-04-09] MEDS ORDERED: SERTRALINE HCL 100 MG TABLET PO SCH (09:00)
[2022-04-09] MEDS ORDERED: ENOXAPARIN INJ 40 MG/0.4 ML SYR SQ SCH (09:00)
--- NOTE | 2022-04-09 09:47 | Neurology Consultation ---
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 These visual hallucinations occur without any known history of damage to the visual pathway or occipital lobes. They do occur in the context of perhaps some psychosocial stressors, separation from her spouse, depression, insomnia, but without prior history of psychosis. She does not have signs or symptoms suggestive of Lewy body disease. Patient will need a brain MRI to further assess for acute or subacute infarct. Patient should continue with clopidogrel 75 mg/day and atorvastatin 40 mg/day. Her blood pressure is appropriate, does not require antihypertensive treatment. Follow-up with echocardiogram. Would also recommend completion of 30-day mobile cardiac outpatient telemetry. I do not see a reason to obtain an EEG at this time. However, if patient were to present with recurrent, stereotypical episodes then an EEG in that context would not be unreasonable. I agree that if the above MRI does show evidence of an acute or subacute infarct, would add daily low-dose aspirin to her current medication regimen, dual antiplatelet therapy with aspirin and Plavix for 3 weeks, but would then transition back to Plavix monotherapy. Again, would also need to review results of echocardiogram and outpatient cardiac telemetry monitoring to further exclude cardioembolic source. Would also recommend checking a hypercoagulable panel given patient's relatively young age. History of Present Illness Reason for Consultation: stroke like symptoms Requesting Physician: Etta Eastman MD Attending Physician: Etta Eastman MD History of Present Illness The patient is a 46-year-old female with a history of hypertension, hyper lipidemia, had seen local [facility] neurology, Adebayo Jacome, in March 2021 for dysarthria, history of left MCA territory stroke in 2016 without residual deficits, PFO, have presented with dysarthria, was administered tPA at that time, MRI negative. She is prescribed atorvastatin, and clopidogrel as an outpatient. She presented to the emergency department yesterday complaining of intermittent dysarthria which she informed me had been going on for about the past week, but without other associated symptoms such as facial droop or hemiplegia. However, the evening prior to her assessment in the emergency department she reported experiencing visual hallucinations, she was outside in her driveway in the dark and thought she saw panther under her car. While inside of her house she indicated that she had seen mice and rats. She is currently from her and had apparently contacted him as well as her brother regarding these events. She denies any auditory hallucinations. She denies experiencing any hallucinations in the past. She is prescribed trazodone and sertraline for mood and insomnia. She denies use of marijuana or other hallucinogens. She denies any history of vision loss or ocular disease. She is currently resting comfortably in bed and without specific complaint. No headache, recurrence of slurred speech, vision change, or focal weakness. No recurrence of hallucinations. A CT of the head was negative for hemorrhage or acute process. There are punctate old lacunar infarcts within the left cerebellar hemisphere, unchanged compared with the previous CT of the head done in March 2021. There is wallerian degeneration within the left cerebral peduncle. A CT angiogram of the head and neck revealed a focal area of occlusion within the superior division of the left M2 segment, new from the prior study done in March 2021, potentially consistent with an acute on chronic left MCA infarct. There is attenuation of the left MCA branches andrei esponding to the old left MCA infarct. No significant stenosis, occlusion, or dissection within the carotid or vertebral arteries. I independently reviewed these images and agree with the findings as described by the interpreting radiologist. I was able to appreciate the chronic appearing rather large left MCA/perisylvian infarct with associated hypoattenuation and relatively small left cerebral peduncle consistent with layering degeneration. Electrocardiogram revealed a normal sinus rhythm, 88 bpm. An echocardiogram completed April 24, 2021 revealed normal left ventricular size, borderline concentric left ventricular hypertrophy, left ventricular wall motion normal, EF 60 to 65%, grade 1 diastolic dysfunction, left atrial size normal, no ASD. Labs reviewed, lipid panel completed this morning. Triglycerides 44, cholesterol 122, LDL 38, VLDL 9, HDL 75. CBC and metabolic panel fairly unremarkable although glucose low this morning, 46, has had other normal [id number] glucose readings. Urine drug screen fairly unremarkable although did have a positive screen for MDMA, follow-up testing pending (could be related to sertraline and trazodone.) Allergies Allergy/AdvReac Type Severity Reaction Status Date / Time ethinyl estradiol Allergy Unknown neuro Verified 12/22/21 09:21 [From Ortho Tri-Cyclen (28)] complications norgestimate Allergy Unknown neuro Verified 12/22/21 09:21 [From Ortho Tri-Cyclen (28)] complications Penicillins Allergy Unknown unkn Verified 12/22/21 09:21 bee venom protein (honey bee) AdvReac Unknown SWELLING Verified 12/22/21 09:21 Home Medications Medication Instructions Recorded Confirmed Type losartan 25 mg tablet 25 mg PO DAILY 10/17/18 04/08/22 History bupropion HCl 300 mg 24 hr tablet, 300 mg PO DAILY 04/23/21 04/08/22 History extended release gabapentin 400 mg capsule 400 mg PO TID 04/23/21 04/08/22 History clopidogrel 75 mg tablet 75 mg PO DAILY #30 tabs 04/25/21 04/08/22 Rx Tylenol Extended Release 1,000 mg PO Q6H PRN pain or fever 04/08/22 04/08/22 History atorvastatin 40 mg tablet 40 mg PO DAILY 04/08/22 04/08/22 History ergocalciferol (vitamin D2) 1,000 1,000 unit PO DAILY 04/08/22 04/08/22 History unit capsule sertraline 100 mg tablet 100 mg PO DAILY 04/08/22 04/08/22 History trazodone 100 mg tablet 100 mg PO HS PRN Insomnia 04/08/22 04/08/22 History Patient History Medical History Ischemic cerebrovascular accident (CVA) Vaginal Pap smear with ASC-US Varicella Surgical History H/O hernia repair Status post pyloromyotomy, follow-up exam Family History Aunt Breast cancer Father Diabetes Hypertension Mother Heart disease Grandmother (Maternal) Osteoporosis Social History Smoking Status: Former smoker Tobacco Type: Cigarettes Second Hand Exposure: No; Do You Dip or Chew Tobacco: No; Hx Alcohol Use: Yes Alcohol type: wine Hx Substance Use: No Preferred Language: Cymro Communication Ability: Effective 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 Required: No Beliefs That Will Affect Care: None Current Living Situation: Alone Other Information That Helps Us Care for You: No Feels Safe at Home: Yes Safety Concerns: Feels Safe At This Time Assistive Devices: None Review of Systems Constitutional: no fever and no chills Eyes: no blind spots and no diplopia Ear, Nose, Mouth, Throat: no ear pain and no hearing loss Respiratory: no cough and no dyspnea Cardiovascular: no chest pain and no palpitations Gastrointestinal: no nausea and no vomiting Genitourinary: no dysuria Musculoskeletal: no neck pain and no myalgia Integumentary: no rash and no lesions Neurologic: as per Subjective / HPI Psychiatric: as per Subjective / HPI, + depression and + hallucinations Hematologic / Lymphatic: no easy bleeding and no easy bruising Exam (Neuro) Constitutional: well developed and well nourished; no acute distress Eyes: normal visual saucedo by confrontation, PERRL, normal accommodation and EOM intact bilaterally; no fundoscopic abnormality, no nystagmus and no papilledema Cardiovascular: Vessels: normal carotid upstroke; no carotid bruit Neurologic: Oriented to:: Person, Place and Time Memory: Short Term Intact and Remote Intact Attention: Span Intact and Concentration Intact Language: Naming Objects and Repeating Phrases Speech Fluency: negative Dysarthria Speech Aphasia: negative Aphasia Fund of Knowledge: Current Events, Past History and Vocabulary Cranial Nerves: Normal II (Visual saucedo full to confrontation, visual acuity normal), III, IV, (Pupils equal round reactive to light and accommodation, eye movements normal), V (Facial sensation intact), VIII (Hearing normal), IX, X (Palate elevates to midline), XI (Shoulder shrug intact) and XII (Tongue protrudes to midline); Abnorm VII (There is flattening of the right nasolabial fold noted) Motor Strength: Normal Lower Extremities, Normal Upper Extremities, Pronator Drift Laterality: Right and Hemiparesis (Very mildly decreased facility of fine finger movements for the right hand) Laterality: Right Motor Tone: Normal Lower Extremities and Normal Upper Extremities Muscle Bulk/Involuntary Movements: No Involuntary Movements; negative Muscle Atrophy Sensation: Light Touch Intact, Pain/Temperature Intact, Vibration Intact and Proprioception Intact Coordination: Normal and Finger-Nose Abnormal (Mild) Laterality: Right; negative Limited Balance, Dysdiadochokinesia or Heel-Collins Abnormal Deep Tendon Reflexes: Rt Triceps: 2+, Lt Triceps: 2+, Rt Biceps: 3+, Lt Biceps: 2+, Rt Brachioradialis: 2+, Lt Brachioradialis: 2+, Rt Patellar: 3+, Lt Patellar: 2+, Rt Ankle: 2+ and Lt Ankle: 1+ Special Tests: Babinski Present (right) Gait: Normal Station and Gait Results & Data ([facility]) Vital Signs (Past 12 Hours) Vital Signs Temp Pulse Pulse Resp BP Pulse Ox O2 Del Method 04/09/22 08:19 36.6 C 82 18 105/69 97 Room Air 04/08/22 22:00 90 04/09/22 00:00 36.6 C 80 14 104/66 96 Room Air PG Care Time/CCT Total # of Minutes Spent Total Time Spent with Patient: Total time spent is greater than 50% in coordination of care (as documented) at patient's floor/unit and/or counseling patient: Coding Level of Care Code 36076 INT INP/OBS CARE 2/55MIN Diagnoses Stroke-like episode R29.90 Hallucinations R44.3 H/O: stroke with residual effects I69.30
[2022-04-09 10:10] LABS: Estimated Average Glucose 97 mg/dl
--- NOTE | 2022-04-09 12:16 | Magnetic Resonance Report ---
MRI OF THE BRAIN WITHOUT CONTRAST CLINICAL HISTORY: Stroke like symptoms. Slurred speech. COMPARISON STUDY: MRI of the brain April 24, [address] and CTA of the head April 08 3. TECHNIQUE: Utilizing a 1.5 Rissa magnet and dedicated coil, multiplanar, multiecho imaging of the bra in was performed without IV contrast. FINDINGS: There are no foci of restricted diffusion to suggest acute infarct. No acute intracranial h emorrhage, midline shift or mass effect is present. Ventricular system is stable. Basal cisterns are patent. There are no extra-axial collections. Atrophy is noted. Old infarcts within the left MCA dist ribution are again noted with volume loss. A few small old infarcts within left cerebellar hemisphere are unchanged since previous MRI of April 24, 2021. No intracranial masses are identified on this unenhanced exam. Calvarial signal is within normal limits. There is no mastoid fluid. There is no ev idence for sinusitis. IMPRESSION: 1. No acute intracranial findings. 2. Redemonstration of old left MCA territory and cerebellar infarcts. ACT 112: Negative or not required by law. Electronically signed by: Juan Antonio Nichols M.D. 04/09/2022 12:13 PM
[2022-04-09] MEDS ORDERED: cefTRIAXone SODIUM 1,000 MG in DEXTROSE 5% AD-VAN 50 ML IV SCH (14:00)
[2022-04-09] MEDS ORDERED: STROKE PATIENT DISCHARGE STA (16:58)
--- NOTE | 2022-04-09 16:59 | Discharge Summary ---
Date of Service April 09, 2022 Admission HPI Per Admitting Provider 45-year-old female with a history of a left MCA ischemic stroke in 2015 with no residual deficits, TIA in 2021 as well as known PFO, anxiety,hypertension, hyperlipidemia/mood disorder, past tobacco abuse present to the ER with c/o of hallucination and slurred speech. History obtained from pt and ( but ) at bedside. Pt said yesterday she developed visual hallucination where she saw rats in her house. said she grabbed the dog and went outside to the house. She went to the car to put the dog then noticed black panther under the car; then she started to run back to the house. said she locked the [place] inside the house where she had to break the glass window to unlock the door. She called 911 and the police came. She was having slurred speech and they police asked her if she was drinking and they left. said she called her a 4am. said that she had slurred speech on the phone but by the time he got to the house her slurred speech was on and off and her balance was off. said he cleaned the glass window. He said few hours later pt said that she felt there was a rat crawling on her feet. They called PCP office to try to be seen today, but she could not get an appointment. She went to the urgent care and was sent to the ER. Pt said that she has not been sleeping lately. She has been drinking alcohol on and off and her last drink was on Sunday. She denies any illicit drug. Currently she denies any neurology symptoms. Denies any chest pain, palpitation, dizziness, hallucination, suicidal thought and SOB. Admission Exam Per Admitting Provider General- No acute distress Head- atraumatic Eyes- PERRL, EOMI, ENT- oropharynx clear Neck- supple, no JVD Lungs- clear to auscultation Heart- regular rhythm; no murmur Abdomen- normal bowel sounds, soft, nontender Extremities- no calf tenderness Neuro- alert, oriented x 3; PERRL, EOMI; no facial palsy; no dysarthria Skin- warm & dry Principal Diagnosis Dysarthria Hallucinations UTI (Urinary tract infection ) Hypertension Anxiety/mood disorder Insomnia Alcohol abuse Discharge Exam General- No acute distress Head- atraumatic Eyes- PERRL, EOMI, ENT- oropharynx clear Neck- supple, no JVD Lungs- clear to auscultation Heart- regular rhythm; no murmur Abdomen- normal bowel sounds, soft, nontender Extremities- no calf tenderness Neuro- alert, oriented x 3; PERRL, EOMI; no facial palsy; no dysarthria Skin- warm & dry Discharge Data Allergies Allergy/AdvReac Type Severity Reaction Status Date / Time ethinyl estradiol Allergy Unknown neuro Verified 12/22/21 09:21 [From Ortho Tri-Cyclen (28)] complications norgestimate Allergy Unknown neuro Verified 12/22/21 09:21 [From Ortho Tri-Cyclen (28)] complications Penicillins Allergy Unknown unkn Verified 12/22/21 09:21 bee venom protein (honey bee) AdvReac Unknown SWELLING Verified 12/22/21 09:21 Consultations 04/08/22 13:07 ED Decision to Admit Stat 04/08/22 15:36 Consult Neurology Routine Ordered Studies 04/08/22 09:50 CT angio head w con Stat CT angio neck with con Stat CT head/brain wo con Stat 04/09/22 00:00 MR brain wo con Routine Laboratory Results WBC 6.48 K/ul (4.8-10.8) 04/09/22 07:15 RBC 4.27 M/uL (4.20-5.40) 04/09/22 07:15 Hgb 13.3 g/dl (12.0-16.0) 04/09/22 07:15 Hct 39.5 % (37.0-47.0) 04/09/22 07:15 MCV 92.5 fL (80.0-100.0) 04/09/22 07:15 MCH 31.1 pg (25.0-34.0) 04/09/22 07:15 MCHC 33.7 g/dL (32.0-36.0) 04/09/22 07:15 RDW Std Deviation 41.8 fL (36.4-46.3) 04/09/22 07:15 RDW Coeff of Joslyn 12.2 % (11.5-14.5) 04/09/22 07:15 Plt Count 274 K/uL (130-400) 04/09/22 07:15 MPV 8.7 fL (9.4-12.4) L 04/09/22 07:15 Immature Gran % (Auto) 0.3 % 04/09/22 07:15 Neut % (Auto) 74.1 % 04/09/22 07:15 Lymph % (Auto) 15.3 % 04/09/22 07:15 Banner % (Auto) 8.5 % 04/09/22 07:15 Eos % (Auto) 0.9 % 04/09/22 07:15 Baso % (Auto) 0.9 % 04/09/22 07:15 Neut # (Auto) 4.80 K/uL (1.40-6.50) 04/09/22 07:15 Lymph # (Auto) 0.99 K/uL (1.2-3.4) L 04/09/22 07:15 Banner # (Auto) 0.55 K/uL (0.11-0.59) 04/09/22 07:15 Eos # (Auto) 0.06 K/uL (0-0.50) 04/09/22 07:15 Baso # (Auto) 0.06 K/uL (0-0.2) 04/09/22 07:15 Immature Gran # (Auto) 0.02 K/uL (0.01-0.20) 04/09/22 07:15 PT 11.2 Seconds (9.0-12.0) 04/08/22 10:08 INR 1.1 (0.9-1.1) 04/08/22 10:08 Sodium 137 mmol/L (136-145) 04/09/22 07:15 Potassium 3.9 mmol/L (3.5-5.1) 04/09/22 07:15 Chloride 101 mmol/L (98-107) 04/09/22 07:15 Carbon Dioxide 24 mmol/L (21-32) 04/09/22 07:15 Anion Gap 12 (3-11) H 04/09/22 07:15 BUN 15 mg/dl (6-23) 04/09/22 07:15 Creatinine 0.87 mg/dl (0.6-1.2) 04/09/22 07:15 Est Cr Clr Drug Dosing 72.6 ml/min 04/09/22 07:15 Est GFR ( Amer) 92.6 ml/min 04/09/22 07:15 Est GFR (Non-Af Amer) 79.9 ml/min 04/09/22 07:15 BUN/Creatinine Ratio 17.2 (10-20) 04/09/22 07:15 Glucose 46 mg/dl (70-99(Fasting)) L* 04/09/22 07:15 POC Glucose 81 mg/dl (70-99) 04/09/22 08:53 Estimat Average Glucose 97 mg/dl 04/09/22 07:15 Hemoglobin A1c 5.0 % (4.5-5.6) 04/09/22 07:15 Calcium 8.7 mg/dl (8.5-10.1) 04/09/22 07:15 Magnesium 2.2 mg/dl (1.7-2.4) 04/08/22 10:08 Total Bilirubin 0.5 mg/dl (0.2-1.0) 04/08/22 10:08 AST 17 U/L (13-39) 04/08/22 10:08 ALT 13 U/L (7-52) 04/08/22 10:08 Alkaline Phosphatase 74 U/L (34-104) 04/08/22 10:08 Troponin I High Sens < 2.3 pg/ml (0-14) 04/08/22 10:08 Total Protein 7.3 gm/dl (6.0-8.3) 04/08/22 10:08 Albumin 4.5 gm/dl (3.4-5.0) 04/08/22 10:08 Globulin 2.8 gm/dl (2.5-4.0) 04/08/22 10:08 Albumin/Globulin Ratio 1.6 (0.9-2) 04/08/22 10:08 Triglycerides 44 mg/dl (0-150) 04/09/22 07:15 Cholesterol 122 mg/dl (0-200) 04/09/22 07:15 LDL Cholesterol, Calc 38 mg/dl 04/09/22 07:15 VLDL Cholesterol, Calc 9 mg/dl (0-30) 04/09/22 07:15 HDL Cholesterol 75 mg/dl 04/09/22 07:15 Cholesterol/HDL Ratio 1.6 (0-5) 04/09/22 07:15 Urine Color Yellow 04/08/22 12:45 Urine Appearance Clear (Clear) 04/08/22 12:45 Urine pH 7.5 (4.5-7.5) 04/08/22 12:45 Ur Specific [place] > 1.045 (1.000-1.030) H 04/08/22 12:45 Urine Protein Negative (Negative) 04/08/22 12:45 Urine Glucose (UA) Negative (Negative) 04/08/22 12:45 Urine Ketones 2+ (Negative) H 04/08/22 12:45 Urine Blood Negative (Negative) 04/08/22 12:45 Urine Nitrite Positive (Negative) A 04/08/22 12:45 Urine Bilirubin Negative (Negative) 04/08/22 12:45 Urine Urobilinogen Negative (Negative) 04/08/22 12:45 Ur Leukocyte Esterase Trace (Negative) H 04/08/22 12:45 Urine WBC (Auto) 10-30 /hpf (0-5) H 04/08/22 12:45 Urine RBC (Auto) 0-4 /hpf (0-4) 04/08/22 12:45 U Hyaline Cast (Auto) 1-5 /lpf (0-5) 04/08/22 12:45 U Epithel Cells (Auto) >30 /lpf (0-5) H 04/08/22 12:45 Urine Bacteria (Auto) 4+ (Negative) H 04/08/22 12:45 POC Ur Test NEG (NEG) 04/08/22 12:45 Urine Opiates Screen Neg (Neg) 04/08/22 12:45 Ur Methadone, Qual Neg (Neg) 04/08/22 12:45 Urine Barbiturates Neg (Neg) 04/08/22 12:45 Ur Phencyclidine (PCP) Neg (Neg) 04/08/22 12:45 U Amphetamin/Meth Scrn Neg (Neg) 04/08/22 12:45 MDMA (Ecstasy) Screen Pos (Neg) H 04/08/22 12:45 U Benzodiazepines Scrn Neg (Neg) 04/08/22 12:45 Ur Cocaine Metabolite Neg (Neg) 04/08/22 12:45 U Marijuana (THC) Screen Neg (Neg) 04/08/22 12:45 Ethyl Alcohol mg/dL < 10.0 mg/dl (<10.0) 04/08/22 10:08 Adenovirus (PCR) Not Detected (NotDetected) 04/08/22 10:08 B. pertussis DNA (PCR) Not Detected (NotDetected) 04/08/22 10:08 B.parapertussis DNA PCR Not Detected (NotDetected) 04/08/22 10:08 C. pneumoniae DNA (PCR) Not Detected (NotDetected) 04/08/22 10:08 Coronavirus OC43 (PCR) Not Detected (NotDetected) 04/08/22 10:08 Coronavirus HKU1 (PCR) Not Detected (NotDetected) 04/08/22 10:08 Coronavirus 229E (PCR) Not Detected (NotDetected) 04/08/22 10:08 SARS-CoV-2 (PCR) Not Detected (NotDetected) 04/08/22 10:08 Coronavirus NL63 (PCR) Not Detected (NotDetected) 04/08/22 10:08 Human Metapneumovir PCR Not Detected (NotDetected) 04/08/22 10:08 Influenza Type A (PCR) Not Detected (NotDetected) 04/08/22 10:08 Influenza Type B (PCR) Not Detected (NotDetected) 04/08/22 10:08 M. pneumoniae (PCR) Not Detected (NotDetected) 04/08/22 10:08 Parainfluenza 1 (PCR) Not Detected (NotDetected) 04/08/22 10:08 Parainfluenza 2 (PCR) Not Detected (NotDetected) 04/08/22 10:08 Parainfluenza 3 (PCR) Not Detected (NotDetected) 04/08/22 10:08 Parainfluenza 4 (PCR) Not Detected (NotDetected) 04/08/22 10:08 RSV (PCR) Not Detected (NotDetected) 04/08/22 10:08 Entero/Rhino (PCR) Not Detected (NotDetected) 04/08/22 10:[address] 04/08/22 09:[address] DOSE: HISTORY: neuro deficit, acute stroke suspected TECHNIQUE: Multiaxial CT images of the head were performed without the use of intravenous contrast. Automated exposure control was utilized for this study. A dose lowering technique was utilized adhering to the principles of ALARA. Comparison: Head CT 04/24/2021. Findings: The paranasal sinuses and mastoid air cells are clear. Old left MCA territory infarct again noted with associated encephalomalacia. There are old punctate lacunar infarcts within the left cerebellar hemisphere, unchanged. No mass, hematoma, midline shift, acute infarct identified. The ventricles are stable in size. Wallerian degeneration again noted within the left cerebral peduncle. Impression: No significant change compared to the prior study. No acute intracranial abnormality. Old infarcts as described above. ACT 112: Negative or not required by law. Electronically signed by: Christopher La M.D. 04/08/2022 11:50 AM Head CTA 04/08/22 09:50 HEAD & NECK CTA HISTORY: Slurred speech. neuro deficit, acute stroke suspected TECHNIQUE: Multiaxial CT images of the head were performed following the the intravenous administration of contrast to evaluate the major cerebral vessels. Multiaxial CT images of the neck were also performed following the intravenous administration of contrast to evaluate the major cervical vessels. Maximum intensity projection images were also obtained. A dose lowering technique was utilized adhering to the principles of ALARA. COMPARISON: Head and neck CTA 04/23/2021. FINDINGS: The major dural venous sinuses are patent. Visualized intracranial internal carotid arteries, distal vertebral arteries, and basilar artery are widely patent. There is no significant stenosis, occlusion, or aneurysm seen within the bilateral ACAs, right MCA, or cd reactor operator. Slightly attenuated left MCA branches in comparison to the right. This is likely due to the chronic encephalomalacia seen within the left MCA territory consistent with an old infarct. There is also a focal area of occlusion within the superior division of the left M2 segment best seen image 139. This is new from the prior study and could represent a site of acute on chronic left MCA infarct. The aortic arch and proximal great vessels are widely patent. There is no significant stenosis, occlusion, or dissection identified within the bilateral common carotid, internal carotid, or vertebral arteries. Mild partially calcified plaque within the left carotid bulb. IMPRESSION: 1. There is also a focal area of occlusion within the superior division of the left M2 segment. This is new from the prior study and could represent a site of acute on chronic left MCA infarct. 2. Attenuated left MCA branches likely corresponding to the old left MCA territory infarct. 3. No significant stenosis, occlusion, or dissection identified within the carotid or vertebral arteries. ACT 112: Negative or not required by law. Electronically signed by: Christopher La M.D. 04/08/2022 11:56 AM Neck CTA 04/08/22 09:50 HEAD & NECK CTA HISTORY: Slurred speech. neuro deficit, acute stroke suspected TECHNIQUE: Multiaxial CT images of the head were performed following the the intravenous administration of contrast to evaluate the major cerebral vessels. Multiaxial CT images of the neck were also performed following the intravenous administration of contrast to evaluate the major cervical vessels. Maximum intensity projection images were also obtained. A dose lowering technique was utilized adhering to the principles of ALARA. COMPARISON: Head and neck CTA 04/23/2021. FINDINGS: The major dural venous sinuses are patent. Visualized intracranial internal carotid arteries, distal vertebral arteries, and basilar artery are widely patent. There is no significant stenosis, occlusion, or aneurysm seen within the bilateral ACAs, right MCA, or cd reactor operator. Slightly attenuated left MCA branches in comparison to the right. This is likely due to the chronic encephalomalacia seen within the left MCA territory consistent with an old infarct. There is also a focal area of occlusion within the superior division of the left M2 segment best seen image 139. This is new from the prior study and could represent a site of acute on chronic left MCA infarct. The aortic arch and proximal great vessels are widely patent. There is no significant stenosis, occlusion, or dissection identified within the bilateral common carotid, internal carotid, or vertebral arteries. Mild partially calcified plaque within the left carotid bulb. IMPRESSION: 1. There is also a focal area of occlusion within the superior division of the left M2 segment. This is new from the prior study and could represent a site of acute on chronic left MCA infarct. 2. Attenuated left MCA branches likely corresponding to the old left MCA territory infarct. 3. No significant stenosis, occlusion, or dissection identified within the carotid or vertebral arteries. ACT 112: Negative or not required by law. Electronically signed by: Christopher La M.D. 04/08/2022 11:56 AM Brain MRI 04/09/22 00:00 MRI OF THE BRAIN WITHOUT CONTRAST CLINICAL HISTORY: Stroke like symptoms. Slurred speech. COMPARISON STUDY: MRI of the brain April 24, [address] and CTA of the head April 08, 2022. TECHNIQUE: Utilizing a 1.5 Rissa magnet and dedicated coil, multiplanar, multiecho imaging of the brain was performed without IV contrast. FINDINGS: There are no foci of restricted diffusion to suggest acute infarct. No acute intracranial hemorrhage, midline shift or mass effect is present. Ventricular system is stable. Basal cisterns are patent. There are no extra- axial collections. Atrophy is noted. Old infarcts within the left MCA distribution are again noted with volume loss. A few small old infarcts within left cerebellar hemisphere are unchanged since previous MRI of April 24, 2021. No intracranial masses are identified on this unenhanced exam. Calvarial signal is within normal limits. There is no mastoid fluid. There is no evidence for sinusitis. IMPRESSION: 1. No acute intracranial findings. 2. Redemonstration of old left MCA territory and cerebellar infarcts. ACT 112: Negative or not required by law. Electronically signed by: Juan Antonio Nichols M.D. 04/09/2022 12:13 PM Hospital Course (1) Dysarthria: (2) Hallucinations: 45-year-old female with a history of a left MCA ischemic stroke in 2015 with no residual deficits, TIA in 2021 as well as known PFO, anxiety,hypertension, hyperlipidemia/mood disorder, past tobacco abuse present to the ER with c/o of hallucination and slurred speech. Possible related to anxiety, stress (from the marriage separation ) vs UTI Need to r/o acute CVA due to history of stroke CT head showed no acute intracranial abnormality. CTA head/neck showed focal area of occlusion within the superior division of the left M2 segment. This is new from the prior study and could represent a site of acute on chronic left MCA infarct. Will get MRI brain, resting Echo Leonardo get neuro check Will consult neuro PT/OT/Speech eval Continue Plavix and statin Consider to add aspirin if MRI showed new infarct Continue monitor closely in PCU fall precaution Abnormal UA UA positive for nitrite, Leukocytes and bacteria Received Rocephin in the ER , will continue Follow up urine cx Hypertension BP controlled Will hold Losartan for now Continue monitor BP Anxiety/mood disorder Continue Zoloft and Welbutrin Insomnia Continue trazodone prn Alcohol abuse Denies any history of alcohol withdrawal Continue gabapentin home dose Will monitor closely for DT and alcohol withdrawal sx Will add thiamine and folic acid Counseling on alcohol cessation DVT Px on Lovenox Code Status Full code Total Time Total Time Spent Total Time Spent (In Minutes): 35 minutes Discharge Plan Discharge Items Patient Disposition: Home - Self-Care Reason For Visit: SLURRED SPEECH, VIVID HALLUCINATIONS, LOSS BALANCE Discharge Diagnosis: Dysarthria Hallucinations UTI (Urinary tract infection ) Hypertension Anxiety/mood disorder Insomnia Alcohol abuse Activity: Resume your previous activity Non-emergency contact: Primary Care Provider and Neurologist Call non-emergency contact if: you have any medication questions and your symptoms worsen Follow-up/Referrals: Ghada Irving MD [Primary Care Provider] - Diet: Heart Healthy Addtl Attending Provider Instructions: Follow up with your primary care provider within 1 week ( please call to schedule for the follow appointment) Follow up with neurology in 2 to 4 weeks You will need to arrange for Zio patch to monitor for any cardiac arrhythmia ( your provider or neurology will arrange for the monitor) Complete the antibiotic course (Cefdinir) for urinary tract infection as prescribed. Discuss with your physician regarding final urine cultures (pending at the time of discharge) and also need for further adjustment of antibiotics based on the cultures. Continue monitor your blood pressure and bring your blood pressure log at your next appointment to your primary care provider Continue To hold losartan since your blood pressure has been control while Losartan on hold. Your provider will advise you when to resume the Losartan if blood pressure start elevating. Counseling alcohol cessation Seek immediate medical attention if your symptoms reoccur or worsen Fall precaution Please take all medications as instructed on discharge list below. Please call if you have any questions or problems. You can reach a [facility] hospitalist on duty at [facility] 24 hours a day by calling [phone] Pending Studies at Discharge: Yes Studies:: Urine culture Stand-Alone Forms: My [facility], Smoking Cessation Medications and DC Order Prescriptions: Continued bupropion HCl 300 mg tablet extended release 24 hr 300 mg PO DAILY gabapentin 400 mg capsule 400 mg PO TID clopidogrel 75 mg tablet 75 mg PO DAILY Qty: 30 1RF atorvastatin 40 mg tablet 40 mg PO DAILY sertraline 100 mg tablet 100 mg PO DAILY trazodone 100 mg tablet 100 mg PO HS PRN (Reason: Insomnia) ergocalciferol (vitamin D2) 1,000 unit Capsule 1,000 unit PO DAILY Tylenol Extended Release 1,000 mg PO Q6H PRN (Reason: pain or fever) Discontinued losartan 25 mg tablet 25 mg PO DAILY Discharge Orders: Discharge Order (Routine); Ordered 04/09/22 Ordered By: Etta Eastman Admission Data Admit Date/Time: 04/08/22 14:05 Attending Provider: Etta Eastman Admit Provider: Etta Eastman Primary Care Provider: Ghada Irving Other Providers: Etta Eastman ; Reddy Michelle Other Interventions: Discharge Summary Assessment (RN) Last Done: 04/09/22 17:07
--- NOTE | 2022-04-09 22:33 | Electrocardiogram Report ---
Test Reason : Blood Pressure : / mmHG Vent. Rate : 088 BPM Atrial Rate : 088 BPM P-R Int : 192 ms QRS Dur : 072 ms QT Int : 380 ms P-R-T Axes : 024 025 037 degrees QTc Int : 459 ms Normal sinus rhythm Low voltage QRS Septal infarct (cited on or before 03-APR-2011) Abnormal ECG When compared with ECG of 23-APR-2021 19:38, Questionable change in initial forces of Anterior leads T wave inversion no longer evident in Anterolateral leads Confirmed by Simone Ramsay ([id number]) on 04/09/2022 10:32:46 PM Referred By: REFERRED SELF Confirmed By:Simone Ramsay
--- NOTE | 2022-04-12 12:52 | Coding Query ---
CODING QUERY To promote full compliance with coding requirements relating to patient care, provider participation is requested in all cases of cable ferryboat operator uncertainty. Please assist us with the question(s) below: Coding Question(s): Dr. Eastman, Per the DS, "CTA head/neck showed focal area of occlusion within the superior division of the left M2 segment. This is new from the prior study and could represent a site of acute on chronic left MCA infarct." The neurology consult by Dr. Michelle states, "I did review the recently completed brain MRI, no evidence of acute or subacute infarct. No evidence of hemorrhage. There is a chronic left MCA territory infarct with associated encephalomalacia and compensatory enlargement of the left lateral ventricle." Please clarify the following: Findings indicate: ( x) Chronic left MCA infarct ( ) Acute or subacute left MCA infarct ( ) Unable to determine ( ) Other, please explain Physician's Response(s): Thank you for your time, [place], [facility]
[2022-04-16 15:16] LABS: MDA negative; MDEA negative; MDMA (Ecstasy) Urine, Confirm negative
== END 2022-04-09 17:52 | disposition home or self-care (01) | DRG 690 ==
LOC: ED 09:10 → INTOOBSV 14:05 → 2S 14:05